=== PATIENT | female | born 1950 | race Caucasian/White ===

== ENCOUNTER → 2017-06-29 10:35 | Outpatient (CLI) | payer OTHER, SELFPAY ==
--- NOTE | 2017-06-29 10:48 | VDLE_ITS ---
Reason For Study: RLE DVT (I82.401) RIGHT LEFT GSV is normal. CFV is compressible, spontaneous, phasic, CFV is compressible, spontaneous, phasic, competent, and demonstrates normal competent and demonstrates normal augmentation. augmentation. FV is compressible, spontaneous, phasic, competent and demonstrates normal augmentation. POP V is compressible, spontaneous, phasic, competent and demonstrates normal augmentation. T/P Trunk is compressible. PTV is compressible. Mid and Prox PER V is compressible. Distal PER V is dilated, noncompressible with hypoechoic intraluminal echoes noted, C/W acute DVT. Procedure Exam performed in department. The exam was diagnostic. A preliminary report was called and/or faxed to Dr. Decker @ 11:[address] Decker wyatt contact Dr. Nicole (PT's PCP). Interpretation Summary Acute deep vein thrombosis is noted in the distal right peroneal vein. The remainder of the right lower extremity deep venous system is patent and compressible. Valvular competence appears intact within the proximal deep venous system on the right . The right greater saphenous vein appears patent and compressible segmentally. Ordering Physician: Nora Decker Referring Physician: Mt Szymanski Performed By: Ana Arambula, DEVIKA, RVT
== END ==
PROVIDERS: Family Provider Family Medicine; PCP Family Medicine; Visit Provider Podiatrist
DX: I82.401 Acute embolism and thrombosis of unspecified deep veins of right lower extremity (principal)
CPT/HCPCS: 93971

== ENCOUNTER → 2017-09-01 10:38 | Outpatient (CLI) | payer OTHER, SELFPAY ==
--- NOTE | 2017-09-01 10:42 | RAD_ITS ---
STUDY: X-RAY - PELVIS REASON FOR EXAM: Female, 66 years old. Severe chronic left hip pain. TECHNIQUE: One view of the pelvis was obtained. COMPARISON: None. FINDINGS: There is a non-specific bowel gas pattern. Normal visualized soft tissue structures. Normal bilateral iliac wings, sacroiliac joints and visualized sacrum. Normal visualized bilateral superior and inferior pubic rami. Normal pubic symphysis. Normal ischial tuberosities. Normal visualized right femoral head. Normal right acetabulum. There is moderate articular joint space narrowing of the right hip. Normal visualized left femoral head. Normal left acetabulum. There is moderate articular joint space narrowing of the left hip. Marked degree of disc space narrowing and degeneration in the lower lumbar spine with mild levoscoliosis. RAD/Pelvis 1 or 2 Views IMPRESSION: Moderate degree of osteoarthritis of both hip joints. Marked degree of disc space narrowing and degeneration in the lower lumbar spine. Mild levoscoliosis. Electronically Signed: Aaron Ortiz MD at 15:12 EDT Tel [phone], Service support ,
== END ==
PROVIDERS: Family Provider Family Medicine; PCP Family Medicine; Visit Provider Family Medicine
DX: M16.0 Bilateral primary osteoarthritis of hip (principal); M48.061 Spinal stenosis, lumbar region without neurogenic claudication; M41.86 Other forms of scoliosis, lumbar region
CPT/HCPCS: 72170

== ENCOUNTER → 2018-03-14 07:45 | Outpatient (CLI) | payer MEDICARE, OTHER, SELFPAY ==
--- NOTE | 2018-03-14 07:49 | BI_ITS ---
MAMMOGRAPHY - BILATERAL SCREENING REASON FOR EXAM: Female, 67 years old. Routine annual screening examination. PERTINENT HISTORY: Non-contributory. History of prior bilateral breast reduction surgery. TECHNIQUE: Digital bilateral breast lane (3D mammographic acquisition) in the CC and MLO projections. 2-D mediolateral oblique (MLO) and craniocaudad (CC) views of both breasts were obtained. CAD: Full Field Digital Mammography with Computer Added Detection was performed. COMPARISON: Comparison is made with prior study dated July 27, 2016 and June 20, 2015. FINDINGS: Breast Composition: The breasts are almost entirely fatty. There are no dominant masses or suspicious calcifications. Stable appearance of the retroareolar regions of both breasts and compared with prior breast reduction surgery. No other significant abnormalities are identified. There has been no significant change since the prior study. BI/SCREENING MAMM (CAD), BILAT IMPRESSION: Stable bilateral screening mammogram. Yearly follow-up mammogram recommended. (A) ASSESSMENT CATEGORY: BIRADS Category 2: Benign. A letter regarding these results will be sent to the patient by the facility within 30 days. Approximately 10% of breast cancers are not detected by mammography. A normal mammogram should not delay biopsy of a clinically suspicious abnormality. [id number] Electronically Signed: Aaron Ortiz MD at 15:06 EDT Tel [phone], Service support ,
== END ==
PROVIDERS: Family Provider Family Medicine; PCP Family Medicine; Referring Provider Family Medicine; Visit Provider Family Medicine
DX: Z12.31 Encounter for screening mammogram for malignant neoplasm of breast (principal)
CPT/HCPCS: 77063; 77067

== ENCOUNTER → 2018-05-01 08:36 | Outpatient (CLI) | payer MEDICARE, OTHER, SELFPAY ==
--- NOTE | 2018-05-01 08:40 | RAD_ITS ---
STUDY: X-RAY - RIGHT HIP REASON FOR EXAM: Female, 67 years old. Right hip pain. TECHNIQUE: 2 views of the hip. COMPARISON: None. FINDINGS: Normal femoral head, neck, intertrochanteric region and visualized proximal femur. Normal acetabulum. There is mild articular joint space narrowing. Normal visualized superior and inferior pubic rami and ischial tuberosities. There is evidence of a levoscoliosis with a marked degree of disc space narrowing in this evaluation in the lower lumbar spine. RAD/HIP, UNI W/ Pelvis 2-3 Views IMPRESSION: The space narrowing and dysuria aeration in the lower lumbar spine. Mild levoscoliosis. Mild degree of a osteoarthritis of the right hip joint. Electronically Signed: Aaron rOtiz MD at 8:54 EST Tel [phone], Service support ,
--- NOTE | 2018-05-01 08:40 | RAD_ITS ---
STUDY: X-RAY - LUMBAR SPINE REASON FOR EXAM: Female, 67 years old. Chronic low back pain and right hip pain. TECHNIQUE: 5 view(s) of the lumbar spine were obtained including oblique views. COMPARISON: None FINDINGS: There is straightening of the normal lumbar lordosis. There is a levoscoliosis of the lumbar spine. Minimal anterior listhesis of L3 on L4 There is multilevel endplate spondylosis of the lumbar vertebrae. There is multi-level degenerative disc disease with multi-level disc space narrowing. Facet joint osteoarthritis. There is atherosclerotic calcification of the abdominal aorta without a demonstrated aneurysm. RAD/L/S Spine Min 4 Views IMPRESSION: Marked degree of of the space narrowing at multiple levels with spondylosis and disc degeneration. Facet joint osteoarthritis. Element of spinal stenosis should be ruled out. MRI is recommended if clinically indicated. Electronically Signed: Aaron Ortiz MD at 8:57 EST Tel [phone], Service support ,
== END ==
PROVIDERS: Family Provider Family Medicine; PCP Family Medicine; Referring Provider Family Medicine; Visit Provider Family Medicine
DX: M16.11 Unilateral primary osteoarthritis, right hip (principal); M47.896 Other spondylosis, lumbar region; M48.061 Spinal stenosis, lumbar region without neurogenic claudication; M46.86 Other specified inflammatory spondylopathies, lumbar region
CPT/HCPCS: 72110; 73502

== ENCOUNTER 2018-06-13 12:00 | Outpatient (RCR) | payer MEDICARE, OTHER, SELFPAY ==
--- NOTE | 2018-05-09 13:59 | HP.PTEVAL ---
Patient's Visit Information JACKIE LEE is a 67 year old F referred to Physical Therapy by Glen Szymanski MD with a diagnosis of RIGHT PIRIFORMIS SYNDROME. Date of Evaluation: 05/09/18 Physical Therapist: Michelle Stauffer PT, Cert MDT - Visit Plan Frequency: 2-3x /Week Duration: 4-6 Weeks Plan: POSTURE CORRECTION/STRENGTHENING, INSTRUCTION IN APPROPRIATE BODY MECHANICS AND ACTIVITY MODIFICATIONS. DLS STARTING WITH A NEUTRAL SPINE PROGRESSING ROM TOLERATED. PORFIRIO LE ROM, STRETCHING AND STRENGTHENING. HEP INSTRUCTION. CONSIDER AQUATIC THERAPY. - Subjective Findings: Work/Leisure: RETIRED. LIKES TO WORK IN [employer]. Disability: NO. Present symptoms: RIGHT LOW BACK, RIGHT BUTTOCK AND RIGHT LATERAL LOWER LEG PAIN. NO NUMBNESS OR TINGLING. Present since: A FEW YEARS. HAS WORSENED IN THE LAST 6 WEEKS. Pain Scale: WORST 8/10, LEAST 2/10. Currently: 3/10. PATIENT REPORTS HER SX'S ARE UNCHANGING AT THIS TIME. Commenced as a result of: NO APPARENT REASON. Symptoms at onset: RIGHT LOW BACK AND BUTTOCK. Worse: DRIVING, SITTING, PROLONGED STANDING. Better: CHANGE POSITION. Disturbed sleep: NO. Previous history/Previous treatment: NO RIGHT HIP OR BACK SX. NO PT. HAS BEEN TO A [facility] NUMBEROUS TIMES (USUALLY HEADACHES) WITH MOST RECENT VISIT BEING IN FEB 2018. Coughing/sneezing/straining: NEGATIVE. Gait: NORMAL. Difficulty initiating urinatin: NO. Accidents: NO. Unexplained weight loss: NO. Imaging: RECENT LUMBAR AND RIGHT HIP X-RAYS. RIGHT HIP SHOWS MILD OA. LUMBAR IMPRESSION: [facility] - MARKED DEGREE OF THE SPACE NARROWING AT MULTIPLE LEVELS WITH SPONDYLOSIS AND DISC DEGENERATION. FACET JOINT OA. ELEMENT OF SPINAL STENOSIS SHOULD BE RULED OUT. MRI IS RECOMMENDED IF CLINICALLY INCICATED. PMH: HIGH CHOLESTEROL. Recent major surgery: APR 2017 RIGHT BUNION SURGERY. PLOF (Prior Level of Function): PATIENT REPORTS BEING ABLE TO SIT AND DRIVE WITHOUT PAIN PRIOR TO ONSET OF THIS PAIN ABOUT 6 WEEKS AGO. OTHER: PATIENT REPORTS SHE GOT ON THE INTERNET AND STARTED SOME EX'S ON HER OWN BUT SHE ISN'T SURE IF SHE IS DOING THEM RIGHT. - Objective Sitting/Standing Posture: POOR. Lordosis: REDUCED. Lateral shift: NO. Relevant shift: N/A. Active Correction of posture: Other Observations: INDEP GAIT INTO PT WITHOUT ANY GROSS DEVIATIONS NOTED. INDEP SIT TO STAND WITHOUT UE ASSIST. Motor deficit: PORFIRIO LE'S 5/5 WITH MMT'ING EXCEPT HIPS GRADED 4/5. Sensory deficit: PORFIRIO LE'S INTACT AND SYMMETRICAL. ROM deficit: NOT IN LE'S. Reflexes: 2/3 PORFIRIO LE'S. Dural Signs: NEGATIVE PORFIRIO LE'S. Lumbar mvmt loss: flex - NIL. ext - MIN. R SG - MIN. L SG - MOD. Core strength: POOR. Palpation: NO ACUTE TENDERNESS WITH PALPATION OF THE LUMBOSACRAL REGIONS, PORFIRIO BUTTOCKS OR PORFIRIO HIPS. - Goals Goal 1:: DECREASE C/O LOW BACK AND RIGHT LE SX'S. Goal 2:: IMPROVE SITTING, STANDING AND DRIVING FUNCTION Goal Time Frame: 4-6 Weeks Goal 3:: INSTRUCT IN PROPHYLAXIS Goal Time Frame: 4-6 Weeks - Rehabilitation Potential Rehabilitation Potential: Good - Anticipated Interventions Patient/Client Instruction: Educate patient on: Condition, Plan of Care, Risk Factors, Benefits of Fitness Program For the Purpose of:: To improve self management Therapeutic Exercise to Include: Strength training, Body mechanics, Postural training, In an aquatic setting, Dynamic Lumbar Stabilization, Leighton Exercises Comment: EXPLORE MCKENZIES'S EXTENSION PRINCIPLE OF TREATMENT For the Purpose of:: To decrease pain, To improve muscle performance and motor function, To increase tolerance to activity/condition/position, To improve ability of physical actions for home/community/work/leisure Ultrasound (thermal/non thermal): Yes For the Purpose of:: To decrease pain, To improve nutrient delivery to tissue Thank you for the opportunity to evaluate your patient. For Medicare and Medicare HMO plans, please review the plan of care and approve it. It will need to be FAXED BACK to us at [phone] for Medicare purposes. For Medicare only, by signing this I certify the plan of care. Please let me know if there are questions or concerns regarding this plan of care. Physician Signature: Date:
--- NOTE | 2018-06-06 12:47 | HP.PTREVAL ---
Glen Anders MD, It has been my pleasure to treat JACKIE LEE over the last 7 visits for RIGHT PIRIFORMIS SYNDROME. Please see the progress note below for an update on the physical therapy plan of care! Subjective: FOLLOWING UP WITH DR. ANDERS TUESDAY. STATES SHE WANTS AN MRI. PATIENT REPORTS SHE IS EXCITED TO REPORT SHE DROVE A DIFFEERENT CAR TO PT TODAY (HER HUSBANDS) AND NO PAIN DRIVING HERE TODAY. SHE REPORTS BENDING AND TWISTING WHEN UNAVOIDABLE SEEM TO STILL CAUSE PAIN. LYING DOWN AND HER HEP HELP HER PAIN. RIGHT LBP ABOUT AN HOUR AGO - RESOLVED WITH HEP. SHE REPORTS SHE IS CONTINUING TO IMPROVE - NOT 100% THOUGH. Objective/Function: PATIENT TOLERATED NEW EX'S WELL. DECLINED US DUE TO FEELING GOOD POST EX. PATIENT IS REPORTING GOOD COMPLIANCE WITH HEP AND ACTIVITY MODIFICATIONS BUT STILL GETTING PAIN IF SHE JUST MOVES WRONG WHICH IS USUALLY BENDING OR TWISING. TOLERATED 30 REPS OF CLAMS AND REVERSE CLAMS EASILY ON LLE BUT RIGHT LOW BACK PULLING WITH ABOUT 15 REPS RIGHT. Plan Plan: PROGRESS ROM, STRETCHING AND STRENGTHEING TOLERATED BUT MAINTAIN KIERAN'S EXTENSION PRINCIPAL OF TREATMENT. Goals Goal 1:: DECREASE C/O LOW BACK AND RIGHT LE SX'S. Goal Time Frame: 4-6 Weeks Goal Progress: Progressing Goal 2:: IMPROVE SITTING, STANDING AND DRIVING FUNCTION Goal Time Frame: 4-6 Weeks Goal Progress: Progressing Goal 3:: INSTRUCT IN PROPHYLAXIS Goal Time Frame: 4-6 Weeks Goal Progress: Progressing Anticipated Interventions Patient/Client Instruction: Educate patient on: Condition, Plan of Care, Risk Factors, Benefits of Fitness Program For the Purpose of:: To improve self management Therapeutic Exercise to Include: Strength training, Body mechanics, Postural training, In an aquatic setting, Dynamic Lumbar Stabilization, Kieran Exercises Comment: EXPLORE JAYJAYZIES'S EXTENSION PRINCIPLE OF TREATMENT For the Purpose of:: To decrease pain, To improve muscle performance and motor function, To increase tolerance to activity/condition/position, To improve ability of physical actions for home/community/work/leisure Ultrasound (thermal/non thermal): Yes For the Purpose of:: To decrease pain, To improve nutrient delivery to tissue Please do not hesitate to contact me at [phone] by phone or if you have questions or concerns regarding this new plan of care! Sincerely, Michelle Stauffer, PT, Cert MDT
--- NOTE | 2018-07-14 16:00 | HP.PT.NRP ---
HP - Discharge Summary (1) - Patient Information JACKIE LEE was seen in my office for initial evaluation on 05/09/18. The following Plan of Care was established for this patient: Initial Frequency: 2-3x /Week Initial Duration: 4-6 Weeks - Anticipated Interventions Patient/Client Instruction: Educate patient on: Condition, Plan of Care, Risk Factors, Benefits of Fitness Program For the Purpose of:: To improve self management Therapeutic Exercise to Include: Strength training, Body mechanics, Postural training, In an aquatic setting, Dynamic Lumbar Stabilization, Leighton Exercises For the Purpose of:: To decrease pain, To improve muscle performance and motor function, To increase tolerance to activity/condition/position, To improve ability of physical actions for home/community/work/leisure Ultrasound (thermal/non thermal): Yes For the Purpose of:: To decrease pain, To improve nutrient delivery to tissue This patient was last seen in our office 06/13/18. Pertinent comments regarding their Physical therapy will appear below: This patient has not returned to Physical Therapy and is appropriate to return to MD for further follow-up as needed. At this point I will be discontinuing this patient from physical therapy. I would be happy to see this patient again in the future if found appropriate by the physician. Thank you! Michelle Stauffer, PT, Cert MDT
--- OUTSIDE RECORDS SUMMARY | 2018-08-10 22:45 | XMS RPT_ITS ---
:1950 Author Organization OHIP Support Name Relationship Address Phone TRISTIN LEE Unavailable [address] + [place] [address] R Unavailable Unavailable Unavailable MILEY CARO Unavailable Unavailable + [place] [address] TRISTIN LEE Unavailable [address] + [place] [address] R Unavailable Unavailable Unavailable MILEY CARO Unavailable Unavailable + [place] [address] TRISTIN LEE Unavailable [address] + [place] [address] R Unavailable Unavailable Unavailable MILEY CARO Unavailable [address] + [place] [address] TRISTIN LEE Unavailable [address] + [place] [address] R Unavailable Unavailable Unavailable MILEY CARO Unavailable [address] + [place] [address] NOT GIVEN Unavailable [address] + [place] [address] REKHA REBOLLEDO Unavailable [address] + [place] [address] TRISTIN LEE Unavailable [address] + [place] [address] MANPL Unavailable [address] + [place] MILEY CARO Unavailable [address] + [place] [address] TRISTIN LEE Unavailable [address] + [place] [address] MANPL Unavailable [address] + [place] GORDOMI[place] MATTA Unavailable [address] + [place] [address] TRISTIN LEE Unavailable Unavailable Unavailable NOT GIVEN Unavailable Unavailable Unavailable MILEY CARO Unavailable Unavailable + Care Team Providers Name Role Phone IGLESIA DECKER DPBill Admitting Unavailable IGLESIA DECKER DPM Attending Unavailable IGLESIA DECKER DPBill Primary Care Unavailable ZAY SZYMANSKI MD Consulting Unavailable PROVIDER, UNKNOWN Consulting Unavailable Stephon, Dr. Zay Johnson Attending Unavailable Stephon, Dr. Zay Johnson Admitting Unavailable Ranaranza, Zay Attending Unavailable Ranney, Christophalina Referring Unavailable Ranney, Christopher Primary Care Unavailable Stephon, Zay Attending Unavailable Ranney, Christnasir Referring Unavailable Ranney, Christopher Primary Care Unavailable HornIglesia Attending Unavailable Ranney, Christopher Primary Care Unavailable Ranaranza, Nicker Attending Unavailable Ranney, Christopher Referring Unavailable Ranney, Christopher Primary Care Unavailable Ranaranza, Zay Attending Unavailable Ranney, Christopher Referring Unavailable Ranney, Christopher Primary Care Unavailable Ranney, Nicker Attending Unavailable Ranney, Christopher Referring Unavailable Ranney, Christopher Primary Care Unavailable PROBLEMS PROBLEMS DATE TYPE CONDITION / ATTENDING STATUS SOURCE CODE 06/13/2018 Unknown G57.01 - Lesion Stephon, Active Rosalia of sciatic [facility] nerve, [facility] lower limb / Repository G57.01(ICD-10) 05/01/2018 Unknown M25.551 - Pain Jhonney, Active Rosalia in right hip / [facility] M25.551(ICD-10) Hospital Repository PROCEDURES PROCEDURES No Procedure Records FoundRESULTS RESULTS SPINE LUMBAR Observed: 06/13/2018 Status: F Source: [place] (ROUTINE) 1:06 PM [facility] REPOSITORY [facility] Imaging Services [address] [place] [address] Spine Lumbar (Routine) MR#: [id number] Acct: [id number] Name: JACKIE LEE Paul Rep #: [id number] : 1950 F 67 From: Tonny Carney MD PCP: Zay Szymanski MD Status: REG CLI Study: Spine Lumbar (Routine) Date of Exam: 06/13/18 Exam# [id number] Ordering Dr: Glen Szymanski MD STUDY: MRI LUMBAR SPINE WITHOUT CONTRAST REASON FOR EXAM: Female, 67 years old. DDD, low back pain, right hip pain TECHNIQUE: Standardized fat and water weighted pulse sequences were obtained in the sagittal and axial planes. COMPARISON: Radiographs 05/01/2018 FINDINGS: T12-L1: Normal endplates. Normal disc height, hydration and morphology. Normal bilateral facet joints. Normal central canal and bilateral lateral recesses. Normal bilateral intervertebral neural foramina. Normal lumbar lordosis. There is a levoscoliosis of the lumbar spine. Normal conus medullaris that terminates at the T12 level. L1-2: Bulging annulus with mild left foraminal stenosis. L2-3: Disc space narrowing and desiccation with discogenic endplate changes and anterior osteophytes. Bulging annulus and right facet hypertrophy with moderate right lateral recess stenosis and moderate left foraminal stenosis. L3-4: Disc space narrowing and desiccation with discogenic endplate changes and anterior osteophytes. Bulging annulus and right facet hypertrophy with mild right lateral recess stenosis and moderate to severe right foraminal stenosis. L4-5: Disc space narrowing and desiccation with discogenic endplate changes and anterior osteophytes. Bulging annulus and bilateral facet hypertrophy with mild bilateral lateral recess stenoses and severe right and moderate left foraminal stenoses. L5-S1: Bulging annulus and bilateral facet hypertrophy with severe left and mild right foraminal stenoses. Normal visualized sacral ala. Normal visualized paraspinous soft tissue structures. MRI/Spine Lumbar (Routine) IMPRESSION: Multilevel degenerative disease as described. Severe foraminal stenoses on the right at L4-5 and on the left at L5-S1. Electronically Signed: Tonny Carney MD at 3:41 EST Tel , Service support , CC: Zay Szymanski MD Radio Rigger: Signed RE-EVALUATION - PT (1) Observed: 06/07/2018 Status: F Source: [place] 12:14 PM [facility] REPOSITORY [facility] Physical Therapy [facility] [address] [place] [address] / REEVALUATION / MEDICARE RECERTIFICATION PHYSICAL THERAPY MR#: [id number] Acct: [id number] Name: JACKIE LEE Rep #: [id number] : 1950 67 From: Michelle Stauffer PT, Cert. MDT Referring Dr.: Zay Szymanski MD Status: REG RCR Insurance: MEDICARE PART A B COMMERCIAL OTHER Glen Szymanski MD, It has been my pleasure to treat JACKIE LEE over the last 7 visits for RIGHT PIRIFORMIS SYNDROME. Please see the progress note below for an update on the physical therapy plan of care! Subjective: FOLLOWING UP WITH DR. SZYMANSKI TUESDAY. STATES SHE WANTS AN MRI. PATIENT REPORTS SHE IS EXCITED TO REPORT SHE DROVE A DIFFEERENT CAR TO PT TODAY (HER HUSBANDS) AND NO PAIN DRIVING HERE TODAY. SHE REPORTS BENDING AND TWISTING WHEN UNAVOIDABLE SEEM TO STILL CAUSE PAIN. LYING DOWN AND HER HEP HELP HER PAIN. RIGHT LBP ABOUT AN HOUR AGO - RESOLVED WITH HEP. SHE REPORTS SHE IS CONTINUING TO IMPROVE - NOT 100% THOUGH. Objective/Function: PATIENT TOLERATED NEW EX'S WELL. DECLINED US DUE TO FEELING GOOD POST EX. PATIENT IS REPORTING GOOD COMPLIANCE WITH HEP AND ACTIVITY MODIFICATIONS BUT STILL GETTING PAIN IF SHE JUST MOVES WRONG WHICH IS USUALLY BENDING OR TWISING. TOLERATED 30 REPS OF CLAMS AND REVERSE CLAMS EASILY ON LLE BUT RIGHT LOW BACK PULLING WITH ABOUT 15 REPS RIGHT. Plan Plan: PROGRESS ROM, STRETCHING AND STRENGTHEING TOLERATED BUT MAINTAIN KIERAN'S EXTENSION PRINCIPAL OF TREATMENT. Goals Goal 1:: DECREASE C/O LOW BACK AND RIGHT LE SX'S. Goal Time Frame: 4-6 Weeks Goal Progress: Progressing Goal 2:: IMPROVE SITTING, STANDING AND DRIVING FUNCTION Goal Time Frame: 4-6 Weeks Goal Progress: Progressing Goal 3:: INSTRUCT IN PROPHYLAXIS Goal Time Frame: 4-6 Weeks Goal Progress: Progressing Anticipated Interventions Patient/Client Instruction: Educate patient on: Condition, Plan of Care, Risk Factors, Benefits of Fitness Program For the Purpose of:: To improve self management Therapeutic Exercise to Include: Strength training, Body mechanics, Postural training, In an aquatic setting, Dynamic Lumbar Stabilization, Kieran Exercises Comment: EXPLORE SADIA'S EXTENSION PRINCIPLE OF TREATMENT For the Purpose of:: To decrease pain, To improve muscle performance and motor function, To increase tolerance to activity/condition/position, To improve ability of physical actions for home/community/work/leisure Ultrasound (thermal/non thermal): Yes For the Purpose of:: To decrease pain, To improve nutrient delivery to tissue Please do not hesitate to contact me at [phone] by phone or if you have questions or concerns regarding this new plan of care! Sincerely, Michelle Stauffer PT, Cert MDT <Electronically signed by Cert. VERÓNICA Swan PTT> 06/07/18 1211 CC: Zay Szymanski MD BAYLEE Signed For Medicare only, by signing this I certify the plan of care. Physicians Signature Date INITAL EVALUATION (1) Observed: 05/11/2018 Status: F Source: [place] - PT 9:14 AM [facility] REPOSITORY [facility] Physical Therapy [address] [place] [address] Fax REHABILITATION SERVICES INITIAL EVALUATION MR#: [id number] Acct: [id number] Name: JACKIE LEE Rep #: [id number] : 1950 67 From: Michelle Stauffer PT, CertJennifer SANCHEST Referring Dr.: Zay Szymanski MD Status: REG RCR Insurance: MEDICARE PART A B COMMERCIAL OTHER Patient's Visit Information JACKIE LEE is a 67 year old F referred to Physical Therapy by Glen Szymanski MD with a diagnosis of RIGHT PIRIFORMIS SYNDROME. Date of Evaluation: 05/09/18 Physical Therapist: Michelle Stauffer, PT, Cert MDT - Visit Plan Frequency: 2-3x /Week Duration: 4-6 Weeks Plan: POSTURE CORRECTION/STRENGTHENING, INSTRUCTION IN APPROPRIATE BODY MECHANICS AND ACTIVITY MODIFICATIONS. DLS STARTING WITH A NEUTRAL SPINE PROGRESSING ROM TOLERATED. PORFIRIO LE ROM, STRETCHING AND STRENGTHENING. HEP INSTRUCTION. CONSIDER AQUATIC THERAPY. - Subjective Findings: Work/Leisure: RETIRED. LIKES TO WORK IN [employer]. Disability: NO. Present symptoms: RIGHT LOW BACK, RIGHT BUTTOCK AND RIGHT LATERAL LOWER LEG PAIN. NO NUMBNESS OR TINGLING. Present since: A FEW YEARS. HAS WORSENED IN THE LAST 6 WEEKS. Pain Scale: WORST 8/10, LEAST 2/10. Currently: 3/10. PATIENT REPORTS HER SX'S ARE UNCHANGING AT THIS TIME. Commenced as a result of: NO APPARENT REASON. Symptoms at onset: RIGHT LOW BACK AND BUTTOCK. Worse: DRIVING, SITTING, PROLONGED STANDING. Better: CHANGE POSITION. Disturbed sleep: NO. Previous history/Previous treatment: NO RIGHT HIP OR BACK SX. NO PT. HAS BEEN TO A CHIROPRACTOR NUMBEROUS TIMES (USUALLY HEADACHES) WITH MOST RECENT VISIT BEING IN FEB 2018. Coughing/sneezing/straining: NEGATIVE. Gait: NORMAL. Difficulty initiating urinatin: NO. Accidents: NO. Unexplained weight loss: NO. Imaging: RECENT LUMBAR AND RIGHT HIP X-RAYS. RIGHT HIP SHOWS MILD OA. LUMBAR IMPRESSION: [facility] - MARKED DEGREE OF THE SPACE NARROWING AT MULTIPLE LEVELS WITH SPONDYLOSIS AND DISC DEGENERATION. FACET JOINT OA. ELEMENT OF SPINAL STENOSIS SHOULD BE RULED OUT. MRI IS RECOMMENDED IF CLINICALLY INCICATED. PMH: HIGH CHOLESTEROL. Recent major surgery: APR 2017 RIGHT BUNION SURGERY. PLOF (Prior Level of Function): PATIENT REPORTS BEING ABLE TO SIT AND DRIVE WITHOUT PAIN PRIOR TO ONSET OF THIS PAIN ABOUT 6 WEEKS AGO. OTHER: PATIENT REPORTS SHE GOT ON THE INTERNET AND STARTED SOME EX'S ON HER OWN BUT SHE ISN'T SURE IF SHE IS DOING THEM RIGHT. - Objective Sitting/Standing Posture: POOR. Lordosis: REDUCED. Lateral shift: NO. Relevant shift: N/A. Active Correction of posture: Other Observations: INDEP GAIT INTO PT WITHOUT ANY GROSS DEVIATIONS NOTED. INDEP SIT TO STAND WITHOUT UE ASSIST. Motor deficit: PORFIRIO LE'S 5/5 WITH MMT'ING EXCEPT HIPS GRADED 4/5. Sensory deficit: PORFIRIO LE'S INTACT AND SYMMETRICAL. ROM deficit: NOT IN LE'S. Reflexes: 2/3 PORFIRIO LE'S. Dural Signs: NEGATIVE PORFIRIO LE'S. Lumbar mvmt loss: flex - NIL. ext - MIN. R SG - MIN. L SG - MOD. Core strength: POOR. Palpation: NO ACUTE TENDERNESS WITH PALPATION OF THE LUMBOSACRAL REGIONS, PORFIRIO BUTTOCKS OR PORFIRIO HIPS. - Goals Goal 1:: DECREASE C/O LOW BACK AND RIGHT LE SX'S. Goal 2:: IMPROVE SITTING, STANDING AND DRIVING FUNCTION Goal Time Frame: 4-6 Weeks Goal 3:: INSTRUCT IN PROPHYLAXIS Goal Time Frame: 4-6 Weeks - Rehabilitation Potential Rehabilitation Potential: Good - Anticipated Interventions Patient/Client Instruction: Educate patient on: Condition, Plan of Care, Risk Factors, Benefits of Fitness Program For the Purpose of:: To improve self management Therapeutic Exercise to Include: Strength training, Body mechanics, Postural training, In an aquatic setting, Dynamic Lumbar Stabilization, Kieran Exercises Comment: EXPLORE MCKENZIES'S EXTENSION PRINCIPLE OF TREATMENT For the Purpose of:: To decrease pain, To improve muscle performance and motor function, To increase tolerance to activity/condition/position, To improve ability of physical actions for home/community/work/leisure Ultrasound (thermal/non thermal): Yes For the Purpose of:: To decrease pain, To improve nutrient delivery to tissue Thank you for the opportunity to evaluate your patient. For Medicare and Medicare HMO plans, please review the plan of care and approve it. It will need to be FAXED BACK to us at [phone] for Medicare purposes. For Medicare only, by signing this I certify the plan of care. Please let me know if there are questions or concerns regarding this plan of care. Physician Signature: Date: <Electronically signed by Michelle Stauffer PT, Cert. T> 05/11/18 0914 CC: Zay Szymanski MD BAYLEE Signed HIP, UNI W/ PELVIS Observed: 05/01/2018 Status: F Source: [place] 2-3 VIEWS 8:40 AM [facility] REPOSITORY [facility] Imaging Services [address] [place] [address] HIP, UNI W/ Pelvis 2-3 Views MR#: [id number] Acct: [id number] Name: JACKIE LEE Rep #: [id number] : 1950 F 67 From: Aaron Ortiz MD PCP: Zay Szymanski MD Status: REG CLI Study: HIP, UNI W/ Pelvis 2-3 Views Date of Exam: 05/01/18 Exam# [id number] Ordering Dr: Glen Szymanski MD STUDY: X-RAY - RIGHT HIP REASON FOR EXAM: Female, 67 years old. Right hip pain. TECHNIQUE: 2 views of the hip. COMPARISON: None. FINDINGS: Normal femoral head, neck, intertrochanteric region and visualized proximal femur. Normal acetabulum. There is mild articular joint space narrowing. Normal visualized superior and inferior pubic rami and ischial tuberosities. There is evidence of a levoscoliosis with a marked degree of disc space narrowing in this evaluation in the lower lumbar spine. RAD/HIP, UNI W/ Pelvis 2-3 Views IMPRESSION: The space narrowing and dysuria aeration in the lower lumbar spine. Mild levoscoliosis. Mild degree of a osteoarthritis of the right hip joint. Electronically Signed: Aaron Ortiz MD at 8:54 EST Tel [phone], Service support , CC: Zay Szymanski MD Radio Rigger: Signed L/S SPINE MIN 4 Observed: 05/01/2018 Status: F Source: [place] VIEWS 8:40 AM [facility] REPOSITORY [facility] Imaging Services [address] [place] [address] L/S Spine Min 4 Views MR#: [id number] Acct: [id number] Name: JACKIE LEE Rep #: [id number] : 1950 F 67 From: Aaron Ortiz MD PCP: Zay Szymanski MD Status: REG CLI Study: L/S Spine Min 4 Views Date of Exam: 05/01/18 Exam# [id number] Ordering Dr: Glen Szymanski MD STUDY: X-RAY - LUMBAR SPINE REASON FOR EXAM: Female, 67 years old. Chronic low back pain and right hip pain. TECHNIQUE: 5 view(s) of the lumbar spine were obtained including oblique views. COMPARISON: None FINDINGS: There is straightening of the normal lumbar lordosis. There is a levoscoliosis of the lumbar spine. Minimal anterior listhesis of L3 on L4 There is multilevel endplate spondylosis of the lumbar vertebrae. There is multi-level degenerative disc disease with multi-level disc space narrowing. Facet joint osteoarthritis. There is atherosclerotic calcification of the abdominal aorta without a demonstrated aneurysm. RAD/L/S Spine Min 4 Views IMPRESSION: Marked degree of of the space narrowing at multiple levels with spondylosis and disc degeneration. Facet joint osteoarthritis. Element of spinal stenosis should be ruled out. MRI is recommended if clinically indicated. Electronically Signed: Aaron Ortiz MD at 8:57 EST Tel [phone], Service support , CC: Zay Szymanski MD Radio Rigger: Signed SCREENING MAMM (CAD), Observed: 03/14/2018 Status: F Source: [place] BILAT 7:50 AM [facility] REPOSITORY [facility] Imaging Services [address] [place] [address] SCREENING MAMM (CAD), BILAT MR#: [id number] Acct: [id number] Name: JACKIE LEE Rep #: [id number] : 1950 F 67 From: Aaron Ortiz MD PCP: Zay Szymanski MD Status: REG CLI Study: SCREENING MAMM (CAD), BILAT Date of Exam: 03/14/18 Exam# [id number] Ordering Dr: Glen Szymanski MD MAMMOGRAPHY - BILATERAL SCREENING REASON FOR EXAM: Female, 67 years old. Routine annual screening examination. PERTINENT HISTORY: Non-contributory. History of prior bilateral breast reduction surgery. TECHNIQUE: Digital bilateral breast lane (3D mammographic acquisition) in the CC and MLO projections. 2-D mediolateral oblique (MLO) and craniocaudad (CC) views of both breasts were obtained. CAD: Full Field Digital Mammography with Computer Added Detection was performed. COMPARISON: Comparison is made with prior study dated July 27, 2016 and June 20, 2015. FINDINGS: Breast Composition: The breasts are almost entirely fatty. There are no dominant masses or suspicious calcifications. Stable appearance of the retroareolar regions of both breasts and compared with prior breast reduction surgery. No other significant abnormalities are identified. There has been no significant change since the prior study. BI/SCREENING MAMM (CAD), BILAT IMPRESSION: Stable bilateral screening mammogram. Yearly follow-up mammogram recommended. (A) ASSESSMENT CATEGORY: BIRADS Category 2: Benign. A letter regarding these results will be sent to the patient by the facility within 30 days. Approximately 10% of breast cancers are not detected by mammography. A normal mammogram should not delay biopsy of a clinically suspicious abnormality. [id number] Electronically Signed: Aaron Ortiz MD at 15:06 EDT Tel [phone], Service support , CC: Zay Szymanski MD Radio Rigger: Signed PELVIS 1 OR 2 VIEWS Observed: 09/01/2017 Status: F Source: [place] 10:42 AM [facility] REPOSITORY [facility] Imaging Services [address] [place] [address] Pelvis 1 or 2 Views MR#: [id number] Acct: [id number] Name: JACKIE LEE Rep #: [id number] : 1950 F 66 From: Aaron Ortiz MD PCP: Zay Szymanski MD Status: REG CLI Study: Pelvis 1 or 2 Views Date of Exam: 09/01/17 Exam# [id number] Ordering Dr: Glen Szymanski MD STUDY: X-RAY - PELVIS REASON FOR EXAM: Female, 66 years old. Severe chronic left hip pain. TECHNIQUE: One view of the pelvis was obtained. COMPARISON: None. FINDINGS: There is a non-specific bowel gas pattern. Normal visualized soft tissue structures. Normal bilateral iliac wings, sacroiliac joints and visualized sacrum. Normal visualized bilateral superior and inferior pubic rami. Normal pubic symphysis. Normal ischial tuberosities. Normal visualized right femoral head. Normal right acetabulum. There is moderate articular joint space narrowing of the right hip. Normal visualized left femoral head. Normal left acetabulum. There is moderate articular joint space narrowing of the left hip. Marked degree of disc space narrowing and degeneration in the lower lumbar spine with mild levoscoliosis. RAD/Pelvis 1 or 2 Views IMPRESSION: Moderate degree of osteoarthritis of both hip joints. Marked degree of disc space narrowing and degeneration in the lower lumbar spine. Mild levoscoliosis. Electronically Signed: Aaron Ortiz MD at 15:12 EDT Tel [phone], Service support , CC: Zay Szymanski MD Radio Rigger: Signed VENOUS DUPLEX LOWER Observed: 06/29/2017 Status: F Source: [place] EXTREMITY 5:30 PM [facility] REPOSITORY [facility] Cardiovascular Services [address] [place] [address] Venous Duplex US, Unilateral 06/29/17 1046 MR#: [id number] Acct: [id number] Name: JACKIE LEE Rep #: [id number] : 1950 66 From: Paul Elmore MD Attending Dr: Iglesia Decker DPM Status: REG CLI Ordering Dr: Iglesia Decker Date: 06/29/17 Location: [facility] Sex: F C Admitted: Reason For Study: RLE DVT (I82.401) RIGHT LEFT GSV is normal. CFV is compressible, spontaneous, phasic, CFV is compressible, spontaneous, phasic, competent, and demonstrates normal competent and demonstrates normal augmentation. augmentation. FV is compressible, spontaneous, phasic, competent and demonstrates normal augmentation. POP V is compressible, spontaneous, phasic, competent and demonstrates normal augmentation. T/P Trunk is compressible. PTV is compressible. Mid and Prox PER V is compressible. Distal PER V is dilated, noncompressible with hypoechoic intraluminal echoes noted, C/W acute DVT. Procedure Exam performed in department. The exam was diagnostic. A preliminary report was called and/or faxed to Dr. Decker @ 11:[address] Decker wyatt contact Dr. Nicole (PT's PCP). Interpretation Summary Acute deep vein thrombosis is noted in the distal right peroneal vein. The remainder of the right lower extremity deep venous system is patent and compressible. Valvular competence appears intact within the proximal deep venous system on the right . The right greater saphenous vein appears patent and compressible segmentally. Ordering Physician: Iglesia Decker Referring Physician: Zay Szymanski Performed By: Ana Arambula, RDCS, RVT 06/29/171728 Date Paul Elmore MD CC: Zay Szymanski MD; Iglesia Decker DPM Date Dictated: 06/29/17 1046 Date Transcribed: 06/29/171728 Radio Rigger: Signed FOOT COMPLETE RT Observed: 06/17/2017 Status: F Source: [facility] 9:06 AM [place] [address] Patient: JACKIE LEE Phone#: : 1950 Age: 66 Gender: F Pt. Type: Out Account: [id number] Location[facility] Ordering: IGLESIA DECKER Exam Date: 06/17/2017/8:50 Family Phys: ZAY SZYMANSKI Charge Code: 536731 Physician: Crosby Order #: [id number] DLP Dose#: PROCEDURE: X-RAY FOOT RT COMPLETE MIN 3 VIEWS COMPARISON: There has been interval resorption of postsurgical air seen on the prior study. INDICATIONS: Hallus valgus FINDINGS: BONES: Postsurgical changes of right first distal metatarsal osteotomy with K wire. The wire appears in stable position. There is subtle osseous bridging with portions of the osteotomy still visualized. Small calcaneal spur again visualized. SOFT TISSUES: Negative. No visible soft tissue swelling. EFFUSION: None visible. OTHER: Negative. CONCLUSION: 1. Mild osseous bridging at the site of the osteotomy. Wire in stable position. Dictated by: Ashley Ribera MD on 06/17/2017 at 12:49 Approved by: Ashley Ribera MD on 06/17/2017 at 12:49 ALLERGIES ALLERGIES DATE TYPE / CODE NAME / CODE REACTION SEVERITY SOURCE 10/06/2014 Drug Penicillins/ Hives Unknown [facility] Allergy/4160 [id number]( Hospital 80220(SNOMED XNORM) Repository CT) Drug PCN HIVES U [facility] Allergy/4160 (penicillin) [facility] 19980(SNOMED /[id number](RX Repository CT) NORM) ENCOUNTERS ENCOUNTERS ADMIT/DISCHARGE ACCOUNT NUMBER ADMITTING ENCOUNTER LOCATION SOURCE CLASS 06/13/2018 [id number] [facility] ding:MRI Repository 06/13/2018 [id number] [facility] ding:PT Repository 05/01/2018 [id number] [facility] ding:RAD Repository 03/14/2018 [id number] [facility] ding:OPBI Repository 10/19/2017/10/20/[id number] Stephon [address] Repository 09/01/2017 [id number] [facility] ding:HPRAD Repository 06/29/2017 [id number] [facility] ding:CVS Repository 06/17/2017/06/17/19 [id number] IGLESIA DECKER [facility] Repository PAYERS PAYERS ENCOUNTER GUARANTOR PAYER SUBSCRIBER SOURCE 06/13/2018 JACKIE L Primary JACKIE L [place] [id number] Insurance:MEDICARE KLINGLERDOB: [facility] MAIN PART A BPolicy Number: [id number] [id number] Repository [place] [address]Kza: Date:2018-06-08 () 06/13/2018 Secondary JACKIE L [place] Insurance:PUERTO RICAN KLINGLERDOB: [facility] [id number] [facility] Number: Repository [id number] Date:[id number] [address], [place] [address]SK: 06/13/2018 Tertiary NOT GIVENUNK [place] Insurance:SELF PAY [facility] Number: Effective Repository Date:2018-06-08 06/13/2018 JACKIE L Primary JACKIE L [place] [id number] W Insurance:MEDICARE KLINGLERDOB: [facility] MAIN PART A BPolicy Number: [id number] [facility], [id number] [place]ository [place] [address]Glu: Date:2016-11-20 () 06/13/2018 Secondary JACKIE L [place] [facility] [id number] Hospital Number: Repository [id number] Date:3211-86-44AP [address] [place] [address]TU: 06/13/2018 Tertiary NOT GIVENUNK [place] Insurance:SELF PAY [facility] Number: Effective Repository Date:2018-05-03 05/01/2018 JACKIE L Primary JACKIE L [place] [id number] [address] Insurance:MEDICARE INGLERDOB: [facility] MAIN PART A BPolicy Number: [id number] Health [facility], [id number] [place]ository [place] [address]Zib: Date:2018-05-01 () 05/01/2018 Secondary JACKIE L [place] Insurance:[facility]: [facility] [id number] Hospital Number: Repository [id number] Date:8852-16-39JK [address]QVXYCXYX[address]X, [place] [address]CS: 05/01/2018 Tertiary NOT GIVENUNK [place] Insurance:SELF PAY [facility] Number: Effective Repository Date:2018-05-01 03/14/2018 JACKIE L Primary JACKIE L [place] [id number] W Insurance:MEDICARE KLINGLERDOB: [facility] MAIN PART A olicy Number: [id number] Health [facility] [place], [id number] [place]ository [place] [address]Yxm: Date:2018-02-14 () 03/14/2018 Secondary JACKIE L [place] Insurance[facility] [id number] Hospital Number: Repository [id number] Date:9934-70-04HR [address]HKQZAGENYTV, [place] [address]YR: 03/14/2018 Tertiary NOT GIVENUNK [place] Insurance:SELF PAY [facility] Number: Effective Repository Date:2018-02-14 10/19/2017 Primary JACKIE L [facility] Insurance:Medical KLINGLERDOB: [facility] [id number] [place] [address] Number: W MAIN Repository [id number] [facility], Date:Plan Name:Health [place] [id number]: (IZ) 09/01/2017 Jackie L Primary Jackie L [place] [id number] Insurance:MEDICAL KlinglerDOB: [facility] [id number], Number: [place]ository [place] [id number]: [id number] Date:0403-15-27NL [address] () [address], [place] [address]GC: 09/01/2017 Secondary NOT GIVENUNK [place] Insurance:SELF PAY [facility] Number: Effective Repository Date:2017-09-01 06/29/2017 Jackie L Primary Jackie L [place] [id number] [address] Insurance:MEDICAL KlinglerDOB: [facility] [id number] Medical Center, Number: [place] [id number]: [id number] Date:3091-45-16AJ [address] [address], [place] [address]IH: 06/29/2017 Secondary NOT GIVENUNK [place] Insurance:SELF PAY [facility] Number: Effective Repository Date:2017-06-28 06/17/2017 JACKIE Primary JACKIE L Kevin MCCARTHYB: Insurance:MEDICAL KLINGLERDOB: [facility] [id number] Hospital MAIN OUTPATIENTThe [facility], Number: [place], [place] [address]Ohn: [id number] [place] [address] Date:Plan Name:M3 ()
== END 2018-06-13 19:00 | disposition home or self-care (01) ==
LOC: PT 12:00
PROVIDERS: Family Provider Family Medicine; PCP Family Medicine; Referring Provider Family Medicine; Visit Provider Family Medicine
DX: G57.01 Lesion of sciatic nerve, right lower limb (principal)
CPT/HCPCS: 97035; 97110; 97140; 97162; 97530

== ENCOUNTER → 2018-06-13 12:59 | Outpatient (CLI) | payer MEDICARE, OTHER, SELFPAY ==
--- NOTE | 2018-06-13 13:06 | MRI_ITS ---
STUDY: MRI LUMBAR SPINE WITHOUT CONTRAST REASON FOR EXAM: Female, 67 years old. DDD, low back pain, right hip pain TECHNIQUE: Standardized fat and water weighted pulse sequences were obtained in the sagittal and axial planes. COMPARISON: Radiographs 05/01/2018 FINDINGS: T12-L1: Normal endplates. Normal disc height, hydration and morphology. Normal bilateral facet joints. Normal central canal and bilateral lateral recesses. Normal bilateral intervertebral neural foramina. Normal lumbar lordosis. There is a levoscoliosis of the lumbar spine. Normal conus medullaris that terminates at the T12 level. L1-2: Bulging annulus with mild left foraminal stenosis. L2-3: Disc space narrowing and desiccation with discogenic endplate changes and anterior osteophytes. Bulging annulus and right facet hypertrophy with moderate right lateral recess stenosis and moderate left foraminal stenosis. L3-4: Disc space narrowing and desiccation with discogenic endplate changes and anterior osteophytes. Bulging annulus and right facet hypertrophy with mild right lateral recess stenosis and moderate to severe right foraminal stenosis. L4-5: Disc space narrowing and desiccation with discogenic endplate changes and anterior osteophytes. Bulging annulus and bilateral facet hypertrophy with mild bilateral lateral recess stenoses and severe right and moderate left foraminal stenoses. L5-S1: Bulging annulus and bilateral facet hypertrophy with severe left and mild right foraminal stenoses. Normal visualized sacral ala. Normal visualized paraspinous soft tissue structures. MRI/Spine Lumbar (Routine) IMPRESSION: Multilevel degenerative disease as described. Severe foraminal stenoses on the right at L4-5 and on the left at L5-S1. Electronically Signed: Tonny Carney MD at 3:41 EST Tel , Service support ,
--- OUTSIDE RECORDS SUMMARY | 2018-08-15 17:15 | XMS RPT_ITS ---
:1950 Author Organization OHIP Support Name Relationship Address Phone TRISTIN LEE Unavailable [address] + [place] [address] R Unavailable Unavailable Unavailable MILEY CARO Unavailable Unavailable + [place] [address] TRISTIN LEE Unavailable [address] + [place] [address] R Unavailable Unavailable Unavailable MILEY CARO Unavailable Unavailable + [place] [address] TRISTIN LEE Unavailable [address] + [place] [address] R Unavailable Unavailable Unavailable MILEY CARO Unavailable [address] + [place] [address] TRISTIN LEE Unavailable [address] + [place] [address] R Unavailable Unavailable Unavailable MILEY CARO Unavailable [address] + [place] [address] NOT GIVEN Unavailable [address] + [place] [address] REKHA REBOLLEDO Unavailable [address] + [place] [address] TRISTIN LEE Unavailable [address] + [place] [address] MANPL Unavailable [address] + [place] MI[place] CARO Unavailable [address] + [place] [address] TRISTIN LEE Unavailable [address] + [place] [address] MANPL Unavailable [address] + [place] MI[place] CARO Unavailable [address] + [place] [address] Care Team Providers Name Role Phone Dr. Mt Anders Admitting Unavailable Dr. Mt Anders Attending Unavailable Stephon, Mt Attending Unavailable Ranney, Christopher Referring Unavailable Ranney, Christopher Primary Care Unavailable Ranaranza, Mt Attending Unavailable Ranney, Mt Referring Unavailable Ranney, Christopher Primary Care Unavailable Jeronimo, Nora Attending Unavailable Ranney, Christopher Primary Care Unavailable Ranney, Mt Attending Unavailable Ranney, Christopher Referring Unavailable Ranney, Christopher Primary Care Unavailable Stephon, Mt Attending Unavailable Ranney, Christopher Referring Unavailable Ranney, Christopher Primary Care Unavailable Ranney, Mt Attending Unavailable Ranney, Christmargaritaer Referring Unavailable Ranney, Christopher Primary Care Unavailable PROBLEMS PROBLEMS DATE TYPE CONDITION / ATTENDING STATUS SOURCE CODE 06/13/2018 Unknown G57.01 - Lesion Jhonney, Active [place] of sciatic [facility] [place] [facility] / Repository G57.01(ICD-10) 05/01/2018 Unknown M25.551 - Pain Ranney, Active [place] in right hip / [facility] M25.551(ICD-10) Hospital Repository PROCEDURES PROCEDURES No Procedure Records FoundRESULTS RESULTS SPINE LUMBAR Observed: 06/13/2018 Status: F Source: [place] (ROUTINE) 1:06 PM [facility] REPOSITORY [facility] Imaging Services [address] [place] [address] Spine Lumbar (Routine) MR#: [id number] Acct: [id number] Name: JACKIE LEE Rep #: [id number] : 1950 F 67 From: Tonny Carney MD PCP: Mt Anders MD Status: REG CLI Study: Spine Lumbar (Routine) Date of Exam: 06/13/18 Exam# [id number] Ordering Dr: Glen Anders MD STUDY: MRI LUMBAR SPINE WITHOUT CONTRAST [...] EST Tel , Service support , CC: Mt Anders MD Food Order Delivery Runner: Signed RE-EVALUATION - PT (1) Observed: 06/07/2018 Status: F Source: [place] 12:14 PM [facility] REPOSITORY [facility] Physical Therapy [address] [place] [address] / REEVALUATION / MEDICARE RECERTIFICATION PHYSICAL THERAPY MR#: [id number] Acct: [id number] Name: JACKIE LEE Rep #: [id number] : 1950 67 From: Michelle Stauffer PT, Cert. MDT Referring Dr.: Mt Anders MD Status: REG RCR Insurance: MEDICARE PART A B COMMERCIAL OTHER Glen Anders MD, It has been my pleasure to treat JACKIE LEE over the last 7 visits for RIGHT PIRIFORMIS SYNDROME. Please see the progress note below for an update on the physical therapy plan of care! Subjective: FOLLOWING UP WITH DR. ANDERS TUESDAY. STATES SHE WANTS AN MRI. PATIENT [...] do not hesitate to contact me at [phone] by phone or if you have questions or concerns regarding this new plan of care! Sincerely, Michelle Stauffer PT, Cert MDT <Electronically signed by Cert. VERÓNICA Swan PTT> 06/07/18 1214 CC: Mt Anders MD BAYLEE Signed For Medicare only, by signing this I certify the plan of care. Physicians Signature Date INITAL EVALUATION (1) Observed: 05/11/2018 Status: F Source: [place] - PT 9:14 AM [facility] REPOSITORY [facility] [address] [place] [address]. [address] [place] [address] Fax REHABILITATION SERVICES INITIAL EVALUATION MR#: [id number] Acct: [id number] Name: JACKIE LEE Rep #: [id number] : 1950 67 From: Cristóbal Swan PT. T Referring Dr.: Mt Anders MD Status: REG RCR Insurance: MEDICARE PART A B COMMERCIAL OTHER Patient's Visit Information JACKIE LEE is a 67 year old F referred to Physical Therapy by Glen Anders MD with a diagnosis of RIGHT PIRIFORMIS SYNDROME. Date of Evaluation: 05/09/18 Physical Therapist: Michelle Stauffer PT, Cristóbal SANCHEST - Visit Plan Frequency: 2-3x /Week Duration: [...] Dynamic Lumbar Stabilization, Kieran Exercises Comment: EXPLORE MCLAZAROZIBETTY'S EXTENSION PRINCIPLE OF TREATMENT For the Purpose [...] to be FAXED BACK to us at [phone] for Medicare purposes. For Medicare only, by signing this I certify the plan of care. Please let me know if there are questions or concerns regarding this plan of care. Physician Signature: Date: <Electronically signed by Michelle Stauffer PT, Cert. MDT> 05/11/18 0914 CC: Mt Anders MD BAYLEE Signed HIP, UNI W/ PELVIS Observed: 05/01/2018 Status: F Source: [place] 2-3 VIEWS 8:40 AM [facility] REPOSITORY [facility] Imaging Services [address] [place] [address] HIP, UNI W/ Pelvis 2-3 Views MR#: [id number] Acct: [id number] Name: JACKIE LEE Rep #: [id number] : 1950 F 67 From: Aaron Ortiz MD PCP: Mt Anders MD Status: REG CLI Study: HIP, UNI W/ Pelvis 2-3 Views Date of Exam: 05/01/18 Exam# [id number] Ordering Dr: Glen Anders MD STUDY: X-RAY - RIGHT HIP REASON [...] Aaron Ortiz MD at 8:54 EST Tel [phone], Service support , CC: Mt Anders MD Food Order Delivery Runner: Signed L/S SPINE MIN 4 Observed: 05/01/2018 Status: F Source: [place] VIEWS 8:40 AM [facility] REPOS[facility]ORY [facility] Imaging Services [address] [place] [address] L/S Spine Min 4 Views MR#: [id number] Acct: [id number] Name: JACKIE LEE Rep #: [id number] : 1950 F 67 From: Aaron Ortiz MD PCP: Ranney MD,Christopher Status: REG CLI Study: L/S Spine Min 4 Views Date of Exam: 05/01/18 Exam# [id number] Ordering Dr: Glen Anders MD STUDY: X-RAY - LUMBAR SPINE REASON [...] Aaron Ortiz MD at 8:57 EST Tel [phone], Service support , CC: Mt Anders MD Food Order Delivery Runner: Signed SCREENING MAMM (CAD), Observed: 03/14/2018 Status: F Source: [place] BILAT 7:50 AM [facility] REPOSITORY [facility] Imaging Services [address] [place] [address] SCREENING MAMM (CAD), BILAT MR#: [id number] Acct: [id number] Name: JACKIE LEE Rep #: [id number] : 1950 F 67 From: Aaron Ortiz MD PCP: Mt Anders MD Status: REG CLI Study: SCREENING MAMM (CAD), BILAT Date of Exam: 03/14/18 Exam# [id number] Ordering Dr: Glen Anders MD MAMMOGRAPHY - BILATERAL SCREENING REASON FOR [...] delay biopsy of a clinically suspicious abnormality. [id number] Electronically Signed: Aaron Ortiz MD at 15:06 EDT Tel [phone], Service support , CC: Mt Anders MD Food Order Delivery Runner: Signed PELVIS 1 OR 2 VIEWS Observed: 09/01/2017 Status: F Source: [place] 10:42 AM [facility] REPOSITORY [facility] Imaging Services [address] [place] [address] Pelvis 1 or 2 Views MR#: [id number] Acct: [id number] Name: JACKIE LEE Rep #: [id number] : 1950 F 66 From: Aaron Ortiz MD PCP: Mt Anders MD Status: REG CLI Study: Pelvis 1 or 2 Views Date of Exam: 09/01/17 Exam# [id number] Ordering Dr: Glen Anders MD STUDY: X-RAY - PELVIS REASON FOR [...] Aaron Ortiz MD at 15:12 EDT Tel [phone], Service support , CC: Mt Anders MD Food Order Delivery Runner: Signed VENOUS DUPLEX LOWER Observed: 06/29/2017 Status: F Source: [place] EXTREMITY 5:30 PM [facility] REPOSITORY [facility] Cardiovascular Services [address] [place] [address], [place] [address] Venous Duplex US, Unilateral 06/29/17 1046 MR#: [id number] Acct: [id number] Name: JACKIE LEE Rep #: [id number] : 1950 66 From: Paul Elmore MD Attending Dr: Nora Decker DPM Status: REG CLI Ordering Dr: Nora Decker Date: 06/29/17 Location: [facility] Sex: F [...] appears patent and compressible segmentally. Ordering Physician: Nora Decker Referring Physician: Mt Anders Performed By: Ana Arambula, DEVIKA, RVT 06/29/17 1729 Date Paul Elmore MD CC: Mt Anders MD; Nora Decker DPM Date Dictated: 06/29/17 1046 Date Transcribed: 06/29/17 172 Food Order Delivery Runner: Signed ALLERGIES ALLERGIES DATE TYPE / CODE NAME / CODE REACTION SEVERITY SOURCE 10/06/2014 Drug Penicillins/ Hives Unknown [facility] Allergy/4160 [id number](R Hospital 33169(SNOMED XNORM) Repository CT) ENCOUNTERS ENCOUNTERS ADMIT/DISCHARGE ACCOUNT NUMBER ADMITTING ENCOUNTER LOCATION SOURCE CLASS 06/13/2018 [id number] [facility] ding:MRI Repository 06/13/2018 [id number] [facility] ding:PT Repository 05/01/2018 [id number] [facility] ding:RAD Repository 03/14/2018 [id number] [facility] ding:OPBI Repository 10/19/2017/10/20/[id number] Stephon [address] Repository 09/01/2017 [id number] [facility] ding:HPRAD Repository 06/29/2017 [id number] [facility] ding:CVS Repository PAYERS PAYERS ENCOUNTER GUARANTOR PAYER SUBSCRIBER SOURCE 06/13/2018 JACKIE L Primary JACKIE L [place] [id number] Insurance:MEDICARE KLINGLERDOB: [facility] MAIN PART A [facility] [id number], Number: Repository [place] [address]Sev: [id number] Date:2018-06-08 () 06/13/2018 Secondary JACKIE L [place] Insurance:BANGLADESHI KLINGLERDOB: [facility] [id number] Hospital Number: Repository [id number] Date:7001-70-08JQ MADI [address]BAMFSQZXZCB, [place] [address]XI: 06/13/2018 Tertiary NOT GIVENUNK [place] Insurance:SELF PAY [facility] Number: Effective Repository Date:2018-06-08 06/13/2018 JACKIE L Primary JACKIE L [place] [id number] Insurance:MEDICARE KLINGLERDOB: Community MAIN PART A [facility] [id number] [facility], Number: Repository [place] [address]Uha: [id number] Date:2016-11-20 () 06/13/2018 Secondary JACKIE L [place] Insurance:BANGLADESHI INGST. [facility]SEPH[facility] HEALTH SERVICESB: [facility] [id number] Hospital Number: Repository [id number] Date:6984-54-43[address] [address]UVKEPUNXH [place] [address]YG: 06/13/2018 Tertiary NOT GIVENUNK [place] Insurance:SELF PAY [facility] Number: Effective Repository Date:2018-05-03 05/01/2018 JACKIE L Primary JACKIE L [place] [id number] Insurance:MEDICARE KLINGLERDOB: Community MAIN PART A [facility] [id number] [facility], Number: Repository [place] [address]Ytv: [id number] Date:2018-05-01 () 05/01/2018 Secondary JACKIE L [place] Insurance:BANGLADESHI INGLERDOB: [facility] [id number] Hospital Number: Repository [id number] Date:9372-83-47[address] [address]QWKAPUTOUWW [place] [address]LG: 05/01/2018 Tertiary NOT GIVENUNK [place] Insurance:SELF PAY [facility] Number: Effective Repository Date:2018-05-01 03/14/2018 JACKIE L Primary JACKIE L [place] [id number] Insurance:MEDICARE KLINGLERDOB: Community MAIN PART A [facility] [id number] [facility], Number: Repository [place] [address]Gjr: [id number] Date:2018-02-14 (HP) 03/14/2018 Secondary JACKIE L [place] Insurance:BANGLADESHI KLINGLERDOB: [facility] [id number] Hospital Number: Repository [id number] Date:4997-36-77SP [address] [address]YCQFVVMMBYXLORENA DUBON [address]YM: 03/14/2018 Tertiary NOT GIVENUNK [place] Insurance:SELF PAY [facility] Number: Effective Repository Date:2018-02-14 10/19/2017 Primary JACKIE L [facility] Insurance:Medical KLINGLERDOB: [facility] [id number] Number: W MAIN Repository [id number] [place], Date:Plan Name:Health [place] [id number]: () 09/01/2017 Jackie L Primary Jackie L [place] [id number] Insurance:MEDICAL KlinglerDOB: [facility] [id number], Number: Repository [place] [id number]: [id number] Date:9458-54-55OQ [address] () [address] [address]DD: 09/01/2017 Secondary NOT GIVENUNK [place] Insurance:SELF PAY [facility] Number: Effective Repository Date:2017-09-01 06/29/2017 Jackie L Primary Jackie L [place] [id number] Insurance:MEDICAL KlinglerDOB: [facility] [id number] [facility], Number: Repository [place] [id number]: [id number] Date:7806-89-80MJ [address] () [address] [address]JB: 06/29/2017 Secondary NOT GIVENUNK [place] Insurance:SELF PAY [facility] Number: Effective Repository Date:2017-06-28
== END ==
PROVIDERS: Family Provider Family Medicine; PCP Family Medicine; Referring Provider Family Medicine; Visit Provider Family Medicine
DX: M51.36 Other intervertebral disc degeneration, lumbar region (principal)
CPT/HCPCS: 72148

== ENCOUNTER → 2018-11-07 09:23 | Outpatient (CLI) | payer MEDICARE, OTHER, SELFPAY ==
--- NOTE | 2018-11-07 09:28 | RAD_ITS ---
STUDY: X-RAY - RIGHT SHOULDER REASON FOR EXAM: Female, 67 years old. Shoulder pain TECHNIQUE: 4 view(s) of the shoulder. COMPARISON: November 05, 2014 FINDINGS: Normal glenohumeral articulation. There is degenerative arthrosis of the acromioclavicular joint without inferior osseous spur formation. Normal acromion. The fracture that was seen in the right humeral head is healed. The soft tissue structures are unremarkable. Normal visualized pulmonary apex. RAD/Shoulder min 2 Views IMPRESSION: Healed right humeral head fracture. Minimal degenerative change. Electronically Signed: Vianey Coleman MD at 16:57 EDT Tel , Service support ,
== END ==
PROVIDERS: Family Provider Family Medicine; PCP Family Medicine; Referring Provider Family Medicine; Visit Provider Family Medicine
DX: M25.511 Pain in right shoulder (principal)
CPT/HCPCS: 73030

== ENCOUNTER → 2019-03-20 09:09 | Outpatient (CLI) | payer MEDICARE, OTHER, SELFPAY ==
--- NOTE | 2019-03-20 09:12 | BI_ITS ---
MAMMOGRAPHY - BILATERAL SCREENING REASON FOR EXAM: Female, 68 years old. Routine annual screening examination. PERTINENT HISTORY: Non-contributory. Remote bilateral breast reduction surgery. TECHNIQUE: Digital bilateral breast randy (3D mammographic acquisition) in the CC and MLO projections. 2-D mediolateral oblique (MLO) and craniocaudad (CC) views of both breasts were obtained. CAD: Full Field Digital Mammography with Computer Added Detection was performed. COMPARISON: Comparison is made with prior study March 14, 2018 and July 27, 2016. FINDINGS: Breast Composition: The breasts are almost entirely fatty. There are no dominant masses or suspicious calcifications. Stable appearance of the retroareolar regions of both breasts and compared with prior reduction surgery. Stable benign-appearing bilateral axillary lymph nodes. No other significant abnormalities are identified. There has been no significant change since the prior study. BI/SCREEN MAMM (CAD) W/RANDY BILAT IMPRESSION: Stable bilateral screening mammogram. Yearly follow-up mammogram recommended. (A) ASSESSMENT CATEGORY: BIRADS Category 2: Benign. A letter regarding these results will be sent to the patient by the facility within 30 days. Approximately 10% of breast cancers are not detected by mammography. A normal mammogram should not delay biopsy of a clinically suspicious abnormality. [id number] Electronically Signed: Aaron Ortiz, at 14:10 EDT , Service support ,
--- NOTE | 2019-03-20 09:15 | BD_ITS ---
STUDY: DUAL ENERGY X-RAY ABSORPTIOMETRY / DXA REASON FOR EXAM: Female, 68 years old. The patient is postmenopausal. Loss of height. TECHNIQUE: Bone Mineral Density (BMD) measurements of lumbar spine and bilateral hips were obtained. COMPARISON: Comparison is made with prior study dated July 27, 2016. FINDINGS: Lumbar Spine (L1-L4): g/cm2 (1.378) / T-score (1.5) / Z-score (3.1) Findings are suggestive of normal bone density with a low fracture risk. Left Femur Total: g/cm2 (0.867) / T-score (-1.1) / Z-score (0.2) Left Femoral Neck: g/cm2 (0.792) / T-score (-1.8) / Z-score (-0.2) Right Femur Total: g/cm2 (0.908) / T-score (-0.8) / Z-score (0.5) Right Femoral Neck: g/cm2 (0.893) / T-score (-1.0) / Z-score (0.5) The T-Scores on the most recent prior examination were: Lumbar Spine (L1-L4): There has been improvement of bone density since the previous examination. Left Femur Total: which represents a worsening of 0.6%. Right Femur Total: which represents a worsening of 1.4%. BD/Dexa Bone Density Study IMPRESSION: The patient is considered osteopenic as outlined below according to World Walter Organization (WHO) criteria with a moderate fracture risk. There has been worsening of bone density since the previous examination. Reference Information: The T-score is the number of standard deviations above or below the standard which is normal for young adults at their peak bone mineral density. The World Health Organization (WHO) interprets the T-scores as follows: Above -1 Normal bone density Between -1 and -2.5 Osteopenia Equal to / or below -2.5 Osteoporosis As a practical clinical guideline, osteopenia may be graded as follows: Mild -1 through -1.5 Moderate -1.6 through -2.0 Severe -2.1 through -2.4 The Z-score is the number of standard deviations above or below age-matched controls. A Z-score of less than -1.5 would be considered abnormal. References: 1. NIH Osteoporosis and Related Bone Diseases http://www.osteo.org 2. International Society for Clinical Densitometry http://www.iscd.org 3. National Osteoporosis Foundation http://www.nof.org Electronically Signed: Aaron Ortiz, at 10:45 EDT , Service support ,
== END ==
PROVIDERS: Family Provider Family Medicine; PCP Family Medicine; Referring Provider Family Medicine; Visit Provider Family Medicine
DX: N95.9 Unspecified menopausal and perimenopausal disorder (principal); Z12.31 Encounter for screening mammogram for malignant neoplasm of breast
CPT/HCPCS: 77063; 77067; 77080

== ENCOUNTER → 2019-07-03 08:10 | Outpatient (CLI) | payer MEDICARE, OTHER, SELFPAY ==
[2019-07-03 10:26] LABS: Anion Gap 4 (5-15); BUN 20 mg/dL (7-18); BUN/Creat Ratio 22.6 RATIO (10-20); Calcium,Total 9.8 mg/dL (8.5-10.1); Chloride 107 mmol/L (98-107); Creatinine, Serum 0.88 mg/dL (0.55-1.02); EST Glomerular Filtration Rate 68 mL/min (>60); Est Glom Filt Rate - Afr Amer 82 mL/min (>60); Glucose 86 mg/dL (74-106); Potassium 4.3 mmol/L (3.5-5.1); Sodium Level 140 mmol/L (136-145)
== END ==
PROVIDERS: PCP Family Medicine; Referring Provider Family Medicine; Visit Provider Family Medicine
DX: R03.0 Elevated blood-pressure reading, without diagnosis of hypertension (principal)
CPT/HCPCS: 36415; 80048

== ENCOUNTER → 2019-12-31 08:25 | Outpatient (CLI) | payer MEDICARE, OTHER, SELFPAY ==
[2019-12-31 12:56] LABS: Cholesterol 182 mg/dL (200); High Density Lipoprotein 61 mg/dL; Triglycerides 76 mg/dL; Very Low Density Lipoprotein 15 mg/dL (5-40)
[2019-12-31 13:09] LABS: Vitamin D,25 Hydroxy 25.3 ng/mL
== END ==
PROVIDERS: PCP Family Medicine; Visit Provider Family Medicine
DX: M85.80 Other specified disorders of bone density and structure, unspecified site (principal); E78.00 Pure hypercholesterolemia, unspecified
CPT/HCPCS: 36415; 80061; 82306

== ENCOUNTER → 2020-03-26 07:56 | Outpatient (CLI) | payer MEDICARE, OTHER, SELFPAY ==
--- NOTE | 2020-03-26 07:58 | BI_ITS ---
MAMMOGRAPHY - BILATERAL SCREENING REASON FOR EXAM: Female, 69 years old. Routine annual screening examination. PERTINENT HISTORY: Non-contributory. History of remote bilateral breast reduction surgery. TECHNIQUE: Digital bilateral breast randy (3D mammographic acquisition) in the CC and MLO projections. 2-D mediolateral oblique (MLO) and craniocaudad (CC) views of both breasts were obtained. CAD: Full Field Digital Mammography with Computer Added Detection was performed. COMPARISON: Comparison is made with prior examination dated 03/20/2019 and 03/14/2018. FINDINGS: Breast Composition: The breasts are almost entirely fatty. There are no dominant masses or suspicious calcifications. Stable postoperative changes in the perihilar regions bilaterally. Stable small benign-appearing bilateral axillary lymph nodes. No other significant abnormalities are identified. There has been no significant change since the prior study. BI/SCREEN MAMM (CAD) W/RANDY BILAT IMPRESSION: Stable bilateral screening mammogram. Yearly follow-up mammogram recommended. (A) ASSESSMENT CATEGORY: BIRADS Category 2: Benign. A letter regarding these results will be sent to the patient by the facility within 30 days. Approximately 10% of breast cancers are not detected by mammography. A normal mammogram should not delay biopsy of a clinically suspicious abnormality. [id number] Electronically Signed: Aaron Ortiz, at 9:12 EST , Service support ,
== END ==
PROVIDERS: PCP Family Medicine; Referring Provider Family Medicine; Visit Provider Family Medicine
DX: Z12.31 Encounter for screening mammogram for malignant neoplasm of breast (principal)
CPT/HCPCS: 77063; 77067

== ENCOUNTER → 2020-08-12 09:00 | Outpatient (CLI) | payer MEDICARE, OTHER, SELFPAY ==
[2020-08-12 10:40] LABS: AST(SGOT) 29 U/L (15-37); Alanine Aminotransfer ALT/SGPT 40 U/L (13-56); Albumin, Serum 3.9 g/dL (3.2-5.0); Alkaline Phosphatase 88 U/L (45-117); Anion Gap 6 (5-15); BUN 17 mg/dL (7-18); BUN/Creat Ratio 20.5 RATIO (10-20); Bilirubin, Direct 0.17 mg/dL (0.00-0.30); Calcium,Total 9.4 mg/dL (8.5-10.1); Chloride 108 mmol/L (98-107); Creatinine, Serum 0.83 mg/dL (0.55-1.02); EST Glomerular Filtration Rate 72 mL/min (>60); Est Glom Filt Rate - Afr Amer 88 mL/min (>60); Globulin 3.2 g/dL (2.2-4.2); Glucose 82 mg/dL (74-106); Protein, Total 7.1 g/dL (6.4-8.2); Sodium Level 142 mmol/L (136-145); Thyroid Stim Hormone (TSH) 1.82 uIU/mL (0.358-3.74)
[2020-08-12 11:13] LABS: Hepatitis C Antibody Non-Reactive (Nonreactive); Vitamin D,25 Hydroxy 36.3 ng/mL
== END ==
PROVIDERS: PCP Family Medicine; Visit Provider Family Medicine
DX: M85.80 Other specified disorders of bone density and structure, unspecified site (principal); E55.9 Vitamin D deficiency, unspecified; E78.5 Hyperlipidemia, unspecified
CPT/HCPCS: 36415; 80048; 80076; 82306; 84443; 86803

== ENCOUNTER → 2021-04-09 14:43 | Outpatient (CLI) | payer MEDICARE, OTHER, SELFPAY ==
--- NOTE | 2021-04-09 14:44 | BI_ITS ---
MAMMOGRAPHY - BILATERAL SCREENING REASON FOR EXAM: Female, 70 years old. Routine annual screening examination. PERTINENT HISTORY: Non-contributory. History of bilateral breast reduction surgery. TECHNIQUE: Digital bilateral breast randy (3D mammographic acquisition) in the CC and MLO projections. 2-D mediolateral oblique (MLO) and craniocaudad (CC) views of both breasts were obtained. CAD: Full Field Digital Mammography with Computer Added Detection was performed. COMPARISON: Comparison is made with prior study dated 03/26/2020 and 03/20/2000 FINDINGS: Breast Composition: The breasts are almost entirely fatty. There are no dominant masses or suspicious calcifications. Stable postoperative changes in the periareolar regions bilaterally. Stable small benign-appearing bilateral axillary lymph nodes. No other significant abnormalities are identified. There has been no significant change since the prior study. BI/SCRN MAMM (CAD)W/RANDY BILAT IMPRESSION: Stable bilateral screening mammogram. Yearly follow-up mammogram recommended. (A) ASSESSMENT CATEGORY: BIRADS Category 2: Benign. A letter regarding these results will be sent to the patient by the facility within 30 days. Approximately 10% of breast cancers are not detected by mammography. A normal mammogram should not delay biopsy of a clinically suspicious abnormality. [id number] Electronically Signed: Aaron Ortiz MD at 15:22 EST , Service support ,
--- NOTE | 2021-04-09 15:12 | BD_ITS ---
STUDY: DUAL ENERGY X-RAY ABSORPTIOMETRY / DXA REASON FOR EXAM: Female, 70 years old. 627.8Menopausal postmenopausalBONE DENSITY REASON FOR EXAM TECHNIQUE: Bone Mineral Density (BMD) measurements of lumbar spine and bilateral hips were obtained. COMPARISON: Comparison is made with prior examination dated 03/20/2019. FINDINGS: Lumbar Spine (L1-L4): g/cm2 (1.014) / T-score (-0.4) / Z-score (1.7) Findings are suggestive of normal bone density with a low fracture risk. Left Femur Total: g/cm2 (0.722) / T-score (-1.8) / Z-score (-0.3) Left Femoral Neck: g/cm2 (0.634) / T-score (-1.9) / Z-score (-0.2) Right Femur Total: g/cm2 (0.755) / T-score (-1.5) / Z-score (-0.1) Right Femoral Neck: g/cm2 (0.749) / T-score (-0.9) / Z-score (0.9) The T-Scores on the most recent prior examination were: Lumbar Spine (L1-L4): There has been worsening of bone density since the previous examination. Left Femur Total: which represents a worsening of 10.3%. Right Femur Total: which represents a worsening of 10.5%. BD/Dexa Bone Density Study IMPRESSION: The patient is considered osteopenic as outlined below according to World Walter Organization (WHO) criteria with a moderate fracture risk. There has been worsening of bone density since the previous examination. Reference Information: The T-score is the number of standard deviations above or below the standard which is normal for young adults at their peak bone mineral density. The World Health Organization (WHO) interprets the T-scores as follows: Above -1 Normal bone density Between -1 and -2.5 Osteopenia Equal to / or below -2.5 Osteoporosis As a practical clinical guideline, osteopenia may be graded as follows: Mild -1 through -1.5 Moderate -1.6 through -2.0 Severe -2.1 through -2.4 The Z-score is the number of standard deviations above or below age-matched controls. A Z-score of less than -1.5 would be considered abnormal. References: 1. NIH Osteoporosis and Related Bone Diseases www osteo.org 2. International Society for Clinical Densitometry www iscd.org 3. National Osteoporosis Foundation www nof.org Electronically Signed: Aaron Ortiz MD at 15:20 EST , Service support ,
== END ==
PROVIDERS: PCP Family Medicine; Referring Provider Family Medicine; Visit Provider Family Medicine
DX: N95.9 Unspecified menopausal and perimenopausal disorder (principal); Z12.31 Encounter for screening mammogram for malignant neoplasm of breast
CPT/HCPCS: 77063; 77067; 77080

== ENCOUNTER 2021-08-13 09:20 | Outpatient (CLI) | payer MEDICARE, OTHER, SELFPAY ==
[2021-08-13 11:10] LABS: Vitamin D,25 Hydroxy 33.3 ng/mL
[2021-08-13 11:13] LABS: ALB/GLOB Ratio 1.4 RATIO (0.9-2.4); AST(SGOT) 27 U/L (15-37); Alanine Aminotransfer ALT/SGPT 38 U/L (13-56); Albumin, Serum 3.8 g/dL (3.2-5.0); Alkaline Phosphatase 99 U/L (45-117); Anion Gap 4 (5-15); BUN 20 mg/dL (7-18); BUN/Creat Ratio 22.9 RATIO (10-20); Calcium,Total 9.9 mg/dL (8.5-10.1); Chloride 108 mmol/L (98-107); Cholesterol 200 mg/dL (200); Creatinine, Serum 0.87 mg/dL (0.55-1.02); EST Glomerular Filtration Rate 68 mL/min (>60); Est Glom Filt Rate - Afr Amer 82 mL/min (>60); Globulin 2.7 g/dL (2.2-4.2); Glucose 87 mg/dL (74-106); High Density Lipoprotein 68 mg/dL; Potassium 4.8 mmol/L (3.5-5.1); Protein, Total 6.5 g/dL (6.4-8.2); Sodium Level 139 mmol/L (136-145); Triglycerides 87 mg/dL; Very Low Density Lipoprotein 17 mg/dL (5-40)
== END 2021-08-13 23:59 | disposition home or self-care (01) ==
LOC: MFPLAB 09:21
PROVIDERS: PCP Family Medicine; Referring Provider Family Medicine; Visit Provider Family Medicine
DX: E78.5 Hyperlipidemia, unspecified (principal); E55.9 Vitamin D deficiency, unspecified
CPT/HCPCS: 36415; 80053; 80061; 82306

== ENCOUNTER → 2022-04-12 | Outpatient (CLI) | payer MEDICARE, OTHER, SELFPAY ==
--- NOTE | 2022-04-12 07:38 | BI_ITS ---
MAMMOGRAPHY - BILATERAL SCREENING REASON FOR EXAM: Female, 71 years old. Routine annual screening examination. PERTINENT HISTORY: Non-contributory. Bilateral breast reduction in 2006. TECHNIQUE: Digital bilateral breast randy (3D mammographic acquisition) in the CC and MLO projections. 2-D mediolateral oblique (MLO) and craniocaudad (CC) views of both breasts were obtained. CAD: Full Field Digital Mammography with Computer Added Detection was performed. COMPARISON: Mammogram from 04/09/2021, 03/26/2020. FINDINGS: Breast Composition: There are scattered areas of fibroglandular density. There are no dominant masses or suspicious calcifications. Stable bilateral breast reduction postoperative changes. Stable benign-appearing bilateral axillary lymph nodes. No other significant abnormalities are identified. There has been no significant change since the prior study. BI/SCRN MAMM (CAD)W/RANDY BILAT IMPRESSION: Stable bilateral screening mammogram. Yearly follow-up mammogram recommended. (A) ASSESSMENT CATEGORY: BIRADS Category 2: Benign. A letter regarding these results will be sent to the patient by the facility within 30 days. Approximately 10% of breast cancers are not detected by mammography. A normal mammogram should not delay biopsy of a clinically suspicious abnormality. Electronically Signed: Matthew Batista, at 16:21 EST ,
== END | disposition home or self-care (01) ==
LOC: OPBI 07:36
PROVIDERS: PCP Family Medicine; Visit Provider Family Medicine
DX: Z12.31 Encounter for screening mammogram for malignant neoplasm of breast (principal)
CPT/HCPCS: 77063; 77067

== ENCOUNTER → 2022-08-18 | Outpatient (CLI) | payer MEDICARE, OTHER, SELFPAY ==
[2022-08-18 11:06] LABS: Vitamin D,25 Hydroxy 37.8 ng/mL
[2022-08-18 11:15] LABS: ALB/GLOB Ratio 1.2 RATIO (0.9-2.4); AST(SGOT) 25 U/L (15-37); Alanine Aminotransfer ALT/SGPT 34 U/L (13-56); Albumin, Serum 3.8 g/dL (3.2-5.0); Alkaline Phosphatase 96 U/L (45-117); Anion Gap 6 (5-15); BUN 21 mg/dL (7-18); BUN/Creat Ratio 22.8 RATIO (10-20); Calcium,Total 9.8 mg/dL (8.5-10.1); Chloride 105 mmol/L (98-107); Creatinine, Serum 0.92 mg/dL (0.55-1.02); EST Glomerular Filtration Rate 64 mL/min (>60); Est Glom Filt Rate - Afr Amer 77 mL/min (>60); Globulin 3.1 g/dL (2.2-4.2); Glucose 86 mg/dL (74-106); Protein, Total 6.9 g/dL (6.4-8.2); Sodium Level 138 mmol/L (136-145)
== END | disposition home or self-care (01) ==
LOC: MFPLAB 09:09
PROVIDERS: PCP Family Medicine; Referring Provider Family Medicine; Visit Provider Family Medicine
DX: E78.5 Hyperlipidemia, unspecified (principal); M85.80 Other specified disorders of bone density and structure, unspecified site
CPT/HCPCS: 36415; 80053; 82306; 84443

== ENCOUNTER → 2023-02-04 | Outpatient (CLI) | payer MEDICARE, OTHER, SELFPAY ==
--- NOTE | 2023-02-04 11:42 | EKG12_ITS ---
Test Reason : PRE OP Blood Pressure : / mmHG Vent. Rate : 052 BPM Atrial Rate : 052 BPM P-R Int : 120 ms QRS Dur : 078 ms QT Int : 416 ms P-R-T Axes : 035 002 064 degrees QTc Int : 386 ms Sinus bradycardia Otherwise normal ECG No previous ECGs available Confirmed by STEPHEN SANCHES, CORAZON ([id number]), news assignment editor GEORGE GOMES ([id number]) on 02/09/2023 10:29:23 AM Referred By: Nick Yañez Confirmed By:CORAZON MITCHELL MD
[2023-02-04 14:58] LABS: Hematocrit 44.6 % (37-47); Hemoglobin 14.7 g/dL (12.0-15.0); Mean Corpuscular Hgb 31.3 pg (27.0-32.0); Mean Corpuscular Volume 94.9 fL (81-99); Mean Platelet Vol. 10.2 fl (6.2-12.0); Platelet Count 293 K/mm3 (150-450); RBC Distribution Width CV 11.9 % (11.6-14.6); RBC Distribution Width SD 41.3 fl (35.1-43.9); White Blood Count 5.9 K/mm3 (4.4-11.0)
[2023-02-04 15:53] LABS: Anion Gap 6 (5-15); BUN 15 mg/dL (7-18); Calcium,Total 9.7 mg/dL (8.5-10.1); Chloride 110 mmol/L (98-107); Creatinine, Serum 0.84 mg/dL (0.55-1.02); EST Glomerular Filtration Rate 72 mL/min (>60); Est Glom Filt Rate - Afr Amer 87 mL/min (>60); Glucose 77 mg/dL (74-106); Potassium 3.9 mmol/L (3.5-5.1); Sodium Level 140 mmol/L (136-145)
== END | disposition home or self-care (01) ==
LOC: PSN 11:24
PROVIDERS: PCP Family Medicine; Referring Provider Otolaryngology; Visit Provider Otolaryngology
DX: Z01.818 Encounter for other preprocedural examination (principal)
CPT/HCPCS: 36415; 80048; 85027; 93005

== ENCOUNTER → 2023-04-19 | Outpatient (CLI) | payer MEDICARE, OTHER, SELFPAY ==
--- NOTE | 2023-04-19 13:15 | BI_ITS ---
MAMMOGRAPHY - BILATERAL SCREENING REASON FOR EXAM: Female, 72 years old. Routine annual screening examination. PERTINENT HISTORY: Non-contributory. History of prior bilateral breast reduction surgery. TECHNIQUE: Digital bilateral breast randy (3D mammographic acquisition) in the CC and MLO projections. 2-D mediolateral oblique (MLO) and craniocaudad (CC) views of both breasts were obtained. CAD: Full Field Digital Mammography with Computer Added Detection was performed. COMPARISON: Comparison is made with prior study dated April 12, 2022 and April 09, 2021. FINDINGS: Breast Composition: The breasts are almost entirely fatty. There are no dominant masses or suspicious calcifications. Stable bilateral breast reduction surgery changes. No other significant abnormalities are identified. There has been no significant change since the prior study. BI/SCRN MAMM (CAD)W/RANDY BILAT IMPRESSION: Stable bilateral screening mammogram. Yearly follow-up mammogram recommended. (A) ASSESSMENT CATEGORY: BIRADS Category 2: Benign. A letter regarding these results will be sent to the patient by the facility within 30 days. Approximately 10% of breast cancers are not detected by mammography. A normal mammogram should not delay biopsy of a clinically suspicious abnormality. [id number] Electronically Signed: Aaron Ortiz MD at 8:41 EST ,
--- NOTE | 2023-04-19 13:20 | BD_ITS ---
STUDY: DUAL ENERGY X-RAY ABSORPTIOMETRY / DXA REASON FOR EXAM: Female, 72 years old. [id number] TECHNIQUE: Bone Mineral Density (BMD) measurements of lumbar spine and bilateral hips were obtained. COMPARISON: Comparison is made with prior study dated April 09, 2021. FINDINGS: Lumbar Spine (L1-L4): g/cm2 (0.947) / T-score (-0.8) / Z-score (1.4) Findings are suggestive of normal bone density with a low fracture risk. Left Femur Total: g/cm2 (0.758) / T-score (-1.5) / Z-score (0.1) Left Femoral Neck: g/cm2 (0.634) / T-score (-1.9) / Z-score (-0.1) Right Femur Total: g/cm2 (0.738) / T-score (-1.7) / Z-score (-0.1) Right Femoral Neck: g/cm2 (0.697) / T-score (-1.4) / Z-score (0.5) The T-Scores on the most recent prior examination were: Lumbar Spine (L1-L4): There has been worsening of bone density since the previous examination. Left Femur Total: which represents an improvement of fibrous. Right Femur Total: which represents a worsening of 2.3%. BD/Dexa Bone Density Study IMPRESSION: The patient is considered osteopenic as outlined below according to World Walter Organization (WHO) criteria with a moderate fracture risk. There has been worsening of bone density since the previous examination. Reference Information: The T-score is the number of standard deviations above or below the standard which is normal for young adults at their peak bone mineral density. The World Health Organization (WHO) interprets the T-scores as follows: Above -1 Normal bone density Between -1 and -2.5 Osteopenia Equal to / or below -2.5 Osteoporosis As a practical clinical guideline, osteopenia may be graded as follows: Mild -1 through -1.5 Moderate -1.6 through -2.0 Severe -2.1 through -2.4 The Z-score is the number of standard deviations above or below age-matched controls. A Z-score of less than -1.5 would be considered abnormal. References: 1. NIH Osteoporosis and Related Bone Diseases www osteo.org 2. International Society for Clinical Densitometry www iscd.org 3. National Osteoporosis Foundation www nof.org Electronically Signed: Aaron Ortiz MD at 10:40 EST ,
== END | disposition home or self-care (01) ==
LOC: OPBD 13:12
PROVIDERS: PCP Family Medicine; Referring Provider Family Medicine; Visit Provider Family Medicine
DX: Z12.31 Encounter for screening mammogram for malignant neoplasm of breast (principal); Z78.0 Asymptomatic menopausal state
CPT/HCPCS: 77063; 77067; 77080

== ENCOUNTER → 2023-08-23 | Outpatient (CLI) | payer MEDICARE, OTHER, SELFPAY ==
[2023-08-23 11:00] LABS: Vitamin D,25 Hydroxy 37.1 ng/mL
[2023-08-23 11:10] LABS: ALB/GLOB Ratio 1.2 RATIO (0.9-2.4); AST(SGOT) 30 U/L (15-37); Alanine Aminotransfer ALT/SGPT 38 U/L (13-56); Albumin, Serum 3.7 g/dL (3.2-5.0); Alkaline Phosphatase 96 U/L (45-117); Anion Gap 7 (5-15); BUN 15 mg/dL (7-18); BUN/Creat Ratio 16.5 RATIO (10-20); Calcium,Total 9.3 mg/dL (8.5-10.1); Chloride 108 mmol/L (98-107); Cholesterol 205 mg/dL (200); Creatinine, Serum 0.91 mg/dL (0.55-1.02); EST Glomerular Filtration Rate 65 mL/min (>60); Est Glom Filt Rate - Afr Amer 79 mL/min (>60); Globulin 3.1 g/dL (2.2-4.2); Glucose 94 mg/dL (74-106); High Density Lipoprotein 67 mg/dL; Potassium 4.1 mmol/L (3.5-5.1); Protein, Total 6.8 g/dL (6.4-8.2); Sodium Level 139 mmol/L (136-145); Thyroid Stim Hormone (TSH) 3.89 uIU/mL (0.358-3.74); Triglycerides 113 mg/dL; Very Low Density Lipoprotein 23 mg/dL (5-40)
[2023-08-24 16:15] LABS: T4 Free Direct 0.94 ng/dL (0.76-1.46)
== END | disposition home or self-care (01) ==
LOC: MFPLAB 08:41
PROVIDERS: PCP Family Medicine; Visit Provider Family Medicine
DX: E07.9 Disorder of thyroid, unspecified (principal); M85.80 Other specified disorders of bone density and structure, unspecified site; E78.5 Hyperlipidemia, unspecified
CPT/HCPCS: 36415; 80053; 80061; 82306; 84439; 84443

== ENCOUNTER → 2023-11-30 | Outpatient (CLI) | payer MEDICARE, OTHER, SELFPAY ==
--- NOTE | 2023-11-30 09:57 | NEURO ---
NCS and/or EMG Patient Report Ordering Doctor: Poncho Delgado DATE OF SERVICE: 11/30/23 Kiesha presents electrodiagnostic testing of the upper limbs. She reports numbness and tingling in both hands for approximately 3 months. Electrodiagnostic findings: Right peroneal motor nerve demonstrates normal distal latency, amplitude with reduced conduction velocity. Left median motor nerve demonstrates prolonged latency with normal amplitude and reduced conduction velocity. Ulnar motor responses within normal limits bilaterally, including conduction across the elbow. Normal median and ulnar F?waves. Median sensory latency at the wrist bilaterally. Normal ulnar and radial sensory responses. Needle EMG testing was performed in the upper limbs. All muscles tested showed no evidence of denervation with normal motor unit action potentials. Electrodiagnostic pression: This is an abnormal study in the upper limbs 1. Electrodiagnostic findings demonstrate bilateral median mononeuropathy. This is consistent with a mild right carpal tunnel syndrome and a moderate left carpal tunnel syndrome. 2. Electrodiagnostic evidence for cervical radiculopathy Multi Select Codes Neurology Neurology Interp Codes: 19701-91 Musc test done w/n test comp (interp) (2) and 63542-75 Nrv cndj test 9-10 studies (interp)
== END | disposition home or self-care (01) ==
LOC: PSN 08:31
PROVIDERS: PCP Family Medicine; Referring Provider Student in an Organized Health Care Education/Training Program; Visit Provider Student in an Organized Health Care Education/Training Program
DX: G56.23 Lesion of ulnar nerve, bilateral upper limbs (principal); R20.2 Paresthesia of skin
CPT/HCPCS: 95886; 95911

== ENCOUNTER → 2024-02-22 | Outpatient (CLI) | payer MEDICARE, OTHER, SELFPAY ==
[2024-02-22 12:34] LABS: Cholesterol 194 mg/dL (200); High Density Lipoprotein 68 mg/dL; T4 Free Direct 1.11 ng/dL (0.76-1.46); Triglycerides 79 mg/dL; Very Low Density Lipoprotein 16 mg/dL (5-40)
== END | disposition home or self-care (01) ==
LOC: MTLAB 09:58
PROVIDERS: PCP Family Medicine; Referring Provider Family Medicine; Visit Provider Family Medicine
DX: E07.9 Disorder of thyroid, unspecified (principal); E78.5 Hyperlipidemia, unspecified
CPT/HCPCS: 36415; 80061; 84439; 84443

== ENCOUNTER → 2024-04-20 | Outpatient (CLI) | payer MEDICARE, OTHER, SELFPAY ==
--- NOTE | 2024-04-20 10:10 | BI_ITS ---
MAMMOGRAPHY - BILATERAL SCREENING REASON FOR EXAM: Female, 73 years old. Routine annual screening examination. PERTINENT HISTORY: Non-contributory. History of prior bilateral breast reduction surgery. TECHNIQUE: Digital bilateral breast randy (3D mammographic acquisition) in the CC and MLO projections. 2-D mediolateral oblique (MLO) and craniocaudad (CC) views of both breasts were obtained. CAD: Full Field Digital Mammography with Computer Added Detection was performed. COMPARISON: Comparison is made with prior study April 11, 2023 and April 12, 2022. FINDINGS: Breast Composition: The breasts are almost entirely fatty. There are no dominant masses or suspicious calcifications. Stable postoperative bilateral breast reduction surgery changes. No other significant abnormalities are identified. There has been no significant change since the prior study. BI/SCRN MAMM (CAD)W/RANDY BILAT IMPRESSION: Stable bilateral screening mammogram. Yearly follow-up mammogram recommended. (A) ASSESSMENT CATEGORY: BIRADS Category 2: Benign. A letter regarding these results will be sent to the patient by the facility within 30 days. Approximately 10% of breast cancers are not detected by mammography. A normal mammogram should not delay biopsy of a clinically suspicious abnormality. [id number] Electronically Signed: Aaron Ortiz MD at 8:49 EST ,
== END | disposition home or self-care (01) ==
LOC: OPBI 10:09
PROVIDERS: PCP Family Medicine; Referring Provider Family Medicine; Visit Provider Family Medicine
DX: Z12.31 Encounter for screening mammogram for malignant neoplasm of breast (principal)
CPT/HCPCS: 77063; 77067

== ENCOUNTER → 2024-08-23 | Outpatient (CLI) | payer MEDICARE, OTHER, SELFPAY ==
[2024-08-23 12:19] LABS: AST(SGOT) 27 U/L (<=31); Alanine Aminotransfer ALT/SGPT 25 U/L (<=34); Albumin, Serum 4.3 g/dL (3.4-4.8); Alkaline Phosphatase 98 U/L (35-104); Anion Gap 11 (5-15); BUN 16 mg/dL (4-19); BUN/Creat Ratio 19.6 RATIO (10-20); Calcium,Total 9.9 mg/dL (7.6-11.0); Carbon Dioxide 22.5 mmol/L (21.0-32.0); Chloride 106 mmol/L (98-108); Cholesterol 199 mg/dL (<=200); Creatinine, Serum 0.82 mg/dL (0.70-1.20); EST Glomerular Filtration Rate 76 (>60); Globulin 2.7 g/dL (2.2-4.2); Glucose 92 mg/dL (70-99); High Density Lipoprotein 66 mg/dL; Low Density Lipoprotein Calc. 108 mg/dL; Potassium 4.4 mmol/L (3.3-5.1); Sodium Level 140 mmol/L (133-145); Total Bilirubin 0.45 mg/dL (0.00-1.30); Triglycerides 124 mg/dL; Very Low Density Lipoprotein 25 mg/dL (5-40); Vitamin D,25 Hydroxy 32.6 ng/mL (30-100); cholesterol:hdl ratio screen 3.01
== END | disposition home or self-care (01) ==
LOC: MFPLAB 09:10
PROVIDERS: PCP Family Medicine; Referring Provider Family Medicine; Visit Provider Family Medicine
DX: E78.5 Hyperlipidemia, unspecified (principal); M85.80 Other specified disorders of bone density and structure, unspecified site
CPT/HCPCS: 36415; 80048; 80061; 80076; 82306; 84443

== ENCOUNTER → 2025-03-19 | Outpatient (CLI) | payer MEDICARE, OTHER, SELFPAY ==
--- NOTE | 2025-03-19 12:40 | CT_ITS ---
PROCEDURE: SINUS/FACIAL BONE 03/19/2025 REASON FOR EXAM: CHRONIC SINUSITIS TECHNIQUE: Procedure Code: CTSI Modality: CT Procedure: SINUS/FACIAL BONE Coronal and Sagittal reconstruction series were provided. One or more dose reduction techniques were used (e.g., Automated exposure control, adjustment of the mA and/or kV according to patient size, use of iterative reconstruction technique). RADIATION DOSE SUMMARY: CTDlvol: 33.06 mGy DLP: 821.45 mGycm COMPARISON: None FINDINGS: Frontal: Unremarkable Ethmoid: Unremarkable Sphenoid: Unremarkable Maxillary: Unremarkable Turbinates: Hypertrophy of the inferior turbinates bilaterally. Nasal Septum: Midline. Mastoids/Middle Ears: Unremarkable CT/Sinus/Facial Bone IMPRESSION: The sinuses are clear. Hypertrophy of the inferior turbinates bilaterally. Reading Location: [id number]
== END | disposition home or self-care (01) ==
LOC: CT 12:40
PROVIDERS: PCP Family Medicine; Referring Provider Otolaryngology; Visit Provider Otolaryngology
DX: J32.8 Other chronic sinusitis (principal)
CPT/HCPCS: 70486

== ENCOUNTER → 2025-05-02 | Outpatient (CLI) | payer MEDICARE, OTHER, SELFPAY ==
--- NOTE | 2025-05-02 11:41 | BI_ITS ---
EXAM: SCRN MAMM (CAD)W/RANDY BILAT DATE: 05/02/2025 CLINICAL HISTORY: F, Age 74 y/o , SCREENING TECHNIQUE: Procedure Code: [id number] Modality: MG Procedure: SCRN MAMM (CAD)W/RANDY BILAT COMPARISON: Prior exam(s) were compared FINDINGS: TISSUE DENSITY: The breasts are almost entirely fatty. Bilateral Breast Mammographic Findings: No significant masses, calcifications or other abnormalities are identified. BI/SCRN MAMM (CAD)W/RANDY BILAT IMPRESSION: No mammographic evidence of malignancy. OVERALL FINAL ASSESSMENT BI-RADS 1: NEGATIVE. RECOMMENDATION: Routine annual follow-up in 1 Year Additional Recommendation none A letter with findings and recommendations will be mailed to the patient. Reading Location: [id number]
--- NOTE | 2025-05-02 11:41 | BD_ITS ---
PROCEDURE: DEXA BONE DENSITY STUDY 05/02/2025 REASON FOR EXAM: F, age 74 y/o . Postmenopausal. TECHNIQUE: Procedure Code: BDDBD Modality: DX Procedure: DEXA BONE DENSITY STUDY COMPARISON: March 20, 2019. FINDINGS: BMD and T-SCORES Lumbar spine: 1.001 g/cm2, T-score -0.4 Levels: L1 through L4 Change from prior: Loss of 2.9%. Left femoral neck: 0.566 g/cm2, T-score -2.5 Femoral neck comparison data not recommended for monitoring change. Left total hip: 0.705 g/cm2, T-score -1.9 Change from prior: Loss of 7%. Right femoral neck: 0.688 g/cm2, T-score -1.5 Femoral neck comparison data not recommended for monitoring change. Right total hip: 0.714 g/cm2, T-score -1.9 Change from prior: Loss of 3.3%. The World Health Organization has defined the following categories based on bone density: Normal bone density: T-score equal to or greater than -1.0 Osteopenia: T-score between -1.0 and -2.5 Osteoporosis: T-score equal to or less than -2.5 FRAX (or Comparable) Fracture Risk Assessment: 10 Year Probability of Fracture: Major Osteoporotic Fracture: 23% Hip Fracture: 6.2% (Note: FRAX is not to be reported in setting of normal range bone density, osteoporosis on DEXA, known history of osteoporosis, prior osteoporotic hip or vertebral fracture, or for any patient undergoing pharmacological treatment for bone loss.) The National Osteoporosis Foundation (NOF) recommends pharmacological treatment for patients with a FRAX 10-year risk of 3% or higher for a hip fracture, or 20% or higher for a major osteoporotic fracture, to prevent osteoporosis and reduce fracture risk. The patient does meet the pharmacological treatment recommendations for prevention of osteoporosis. BD/Dexa Bone Density Study IMPRESSION: OSTEOPENIA. Recommend follow-up as clinically warranted. Reading Location: [place] [id number]
== END | disposition home or self-care (01) ==
LOC: OPBD 11:39
PROVIDERS: PCP Family Medicine; Referring Provider Family Medicine; Visit Provider Family Medicine
DX: Z13.820 Encounter for screening for osteoporosis (principal); Z78.0 Asymptomatic menopausal state; Z12.31 Encounter for screening mammogram for malignant neoplasm of breast
CPT/HCPCS: 77063; 77067; 77080

== ENCOUNTER → 2025-05-13 | Outpatient (CLI) | payer MEDICARE, OTHER, SELFPAY ==
[2025-05-13 09:24] LABS: Ionized Calcium Order ORDER TUBE
[2025-05-13 10:52] LABS: PTHIN 53 pg/mL (11-61)
[2025-05-13 10:53] LABS: Magnesium 2.3 mg/dL (1.5-2.2)
== END | disposition home or self-care (01) ==
LOC: MFPLAB 08:23
PROVIDERS: PCP Family Medicine; Visit Provider Family Medicine
DX: M85.80 Other specified disorders of bone density and structure, unspecified site (principal)
CPT/HCPCS: 82330; 83735; 83970; 84100